=== PATIENT | female | born 1965 | race Caucasian/White ===

== ENCOUNTER 2019-08-17 12:19 | Inpatient (IN) | payer OTHER ==
--- NOTE | 2019-08-17 14:19 | R.PREADM ---
SCREENING DATE AND TIME 08/17/2019 13:01 (CDT) ANTICIPATED REHAB ADMISSION DATE 08/19/2019 REFERRING FACILITY JULIA Sawyer REFERRAL DATE AND TIME 08/17/2019 13:01 (CDT) REFERRAL ROOM# G.415 ACUTE ADMIT DATE 08/07/2019 Previous Rehabilitation(s): No. 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 Ian Kelly M.D. [id number] [id number] NAME JENNI SÁNCHEZ RUSS M/M ADDRESS [address] [place] [address] PHONE [phone] ZIP [phone] DATE OF 1965 AGE 53 SSN# [id number] GENDER female MARITAL STATUS RACE white PREF. LANGUAGE (IF NON-CROATIAN) Cambodian ADMIT FROM 02 - [facility] PRE-HOSPITAL LIVING SETTING - Home (private home/apt. board/care, assisted living, long term, transitional living) HOME TYPE AND DETAILS Type of home: single family house # of levels in the residence: 1 # of steps within the residence: 1 # of steps to enter the residence: 1 Patient lives at home with her and is independent with ADL's PRE-HOSPITAL LIVING WITH Other FAMILY SUPPORT No PRIMARY FAMILY CONTACT NAME Gil Sánchez PRIMARY FAMILY CONTACT PHONE PRIMARY FAMILY CONTACT RELATIONSHIP IS PRIMARY FAMILY CONTACT AUTH. REP.? no 1ST EMERGENCY CONTACT Gil Sánchez 1ST CONTACT PHONE 1ST CONTACT RELATIONSHIP IS 1ST CONTACT AUTH. REP.? no PHONE 2ND CONTACT ON ADM.? 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 Yes ANOTHER GREEN PARTY RESPONSIBLE? No PRIMARY REHAB/ACUTE DIAGNOSIS: 4+ Rib FX's, Fractures of L Foot (closed) ONSET DATE 08/07/2019 REHAB IMPAIRMENT CATEGORY (VIVIEN): 17 Major multiple trauma, no brain or spinal cord injury (MMT-NBSCI) does NOT meet 60% rule AFFECTED EXTREMITIES: LLE PRIMARY DIAGNOSIS-RELATED SURGERIES: Emergency ORIF of Left Foot - performed by Dr Jordana Mathews on 08/09/2019 SUMMARY OF ACUTE HOSPITALIZATION: Pt. is a 53 yo Right-handed white female. On 08/07/2019 she was admitted to [facility] and underwent emergency surgery for 4+ Rib FX's, Frac tures of L Foot (closed) (ORIF of Left Foot ) by Dr Jordana Mathews. Pre-morbidly, Pt. was independent/mod-I in Transfers Control, Locomotion, and Self-Care; and she had good Balance, Safety Awareness, Social Cognition, Sphincter Control, and Communication. Currently, she has deficits of Transfers Control, Balance, Locomotion, Safety Awareness, and Self-Car e. Pt. is now [facility] for acute in-patient rehabilitation in order to maximize patient's functional independence in activities of daily living, strength, ROM, and mobi lity. Patient has realistic goal of being discharged at assistance level 6-Jaquan to reside at Home with Spo use. PAST MEDICAL HISTORY HTN HLD HYPOTHYROID Diabetes PAST SURGICAL HISTORY: cholecystectomy HYSTERECTOMY MEDICATION ALLERGIES: No Known Drug Allergies (NKDA) ENVIRONMENTAL ALLERGIES: None Known - Substance Allergies None Known - Other Allergies None Known CODE STATUS: Full code WEIGHT/HEIGHT/BMI: WEIGHT 307 lbs HEIGHT 5' 3" BMI 54.4 DIET: - Diet Type Regular - Diet - Solid Texture Regular - Diet - Liquid Texture Regular - Tube Feed N/A REVIEW OF SYSTEMS: - Gen Alert and awake Lying in bed No apparent distress Oriented to: person, time, and place - Vital Signs Vital signs stable, afebrile - CVS RRR VITAL SIGNS Temperature: 98.4 F SBP/DBP: 119/74 Pulse: 61 Resp: 18 Vital signs stable, afebrile MEDICATIONS/TREATMENT: Other- See attached MAR (Medication Administration Record). CURRENT SPHINCTER CONTROL: Pre-hospital bladder status: continent # of bladder accidents in the last 7 days prior to screenin Pre-hospital bowel status: continent # of bowel accidents in the last 7 days prior to screenin CURRENT LOCOMOTION STATUS: distance walked 0 feet DETAILED CURRENT FUNCTIONAL STATUS: - Bladder accident frequency: Ind - No accidents in the past 7 days - Bowel accident frequency: Ind - No accidents in the past 7 days - Walking score based on distance walked: 1(<=50ft) QI SCORES: - Self-Care A. Eating 04-Supervision or touching assistance B. Oral hygiene 04-Supervision or touching assistance C. Toileting hygiene 04-Supervision or touching assistance E. Shower/bathe self 03-Partial/moderate assistance F. Upper body dressing G. Lower body dressing H. Putting on/taking off footwear - Mobility A. Roll left and right 04-Supervision or touching assistance B. Sit to lying 04-Supervision or touching assistance C. Lying to sitting on side of bed 04-Supervision or touching assistance D. Sit to stand 04-Supervision or touching assistance E. Chair/jky-hf-[id number] transfer 04-Supervision or touching assistance F. Toilet transfer 04-Supervision or touching assistance G. Car transfer 88-Not attempted due to medical condition or safety concerns I. Walk 10 feet 88-Not attempted due to medical condition or safety concerns J. Walk 50 feet with two turns 88-Not attempted due to medical condition or safety concerns K. Walk 150 feet 88-Not attempted due to medical condition or safety concerns L. Walking 10 feet on uneven surfaces 88-Not attempted due to medical condition or safety concerns M. 1 step (curb) 88-Not attempted due to medical condition or safety concerns N. 4 steps 88-Not attempted due to medical condition or safety concerns O. 12 steps 88-Not attempted due to medical condition or safety concerns P. Picking up object 88-Not attempted due to medical condition or safety concerns - Bladder and Bowel Bladder continence 0-Always continent Bowel continence 0-Always continent - Endurance Poor - Balance Poor - Safety Awareness Poor CURRENT FUNC. DEFICITS: Self-Care, Mobility, Endurance, Balance, and Safety Awareness CURRENT / PREVIOUS ASSISTIVE DEVICES: 3-in-1 Commode Quad Cane Raised Toilet Tub Bench HISTORY OF FALLS. HAS THE PATIENT HAD TWO OR MORE FALLS IN THE PAST YEAR OR ANY FALL WITH INJURY IN T HE PAST YEAR?: No PRIOR SURGERY. DID THE PATIENT HAVE MAJOR SURGERY DURING THE 100 DAYS PRIOR TO ADMISSION?: No THERAPY NOTES FROM ACUTE CARE: Attached. SPECIAL NEEDS: - Safety Concerns Skin breakdown precautions needed due to skin breakdown risk PRECAUTIONS: - Weight Bearing Precaution NWB left LE PATIENT NEEDS ACTIVE AND ONGOING THERAPEUTIC INTERVENTION OF MULTIPLE THERAPY DISCIPLINES, INCLUDING: - Dietary and Nutrition Adequate Nutrition. Nutritional Education. Nutritional Supplements. PATIENT NEEDS CLOSE MEDICAL SUPERVISION BY A REHABILITATION PHYSICIAN FOR: Coordination of Treatment Team Post-Op Complications PATIENT REQUIRES 24X7 REHAB NURSING FOR MEDICAL AND FUNCTIONAL MGT. OF THE FOLLOWING DEFICITS: Disease Management Medication Management Patient/Family Education Providing Safe Environment PATIENT REQUIRES INTENSIVE, COORDINATED INTERDISCIPLINARY APPROACH TO REHAB: Arranging Home Equipment/Services Discharge Planning Family Intervention/Training Wind Technician/Case Management PATIENT REHAB POTENTIAL: Diana SÁNCHEZ is able and expected to receive 3 hours of individualized therapy daily on at least 5 of aaliyah ry 7 days Diana SAINIs prognosis for significant practical improvement within a reasonable period of time appears Good Expected level of measurable improvement will be of a practical value to Diana SÁNCHEZ's functional capaci ty or adaptations to impairments Has a viable Discharge Plan Medically appropriate; condition is sufficiently stable to participate in intensive rehab program DISCHARGE PLAN: - Estimated Length of Stay (days) 13. - Consensus on plan Discharge plan has been discussed with primary caregiver. Patient/Family is in agreement with the nia n. Primary caregiver is in agreement with the plan. - Patient/Family Goals Return home with assistance. - Planned Living Setting Upon Discharge Home, to live with Spouse. RECOMMENDED CARE LEVEL: IRF RECOMMENDATION DETAILS: Recommended Admission to Comprehensive Rehabilitation Program to Increase Functional [place] SCREENER'S COMPLETENESS CONFIRMATION: - Screening Confirmation The patient data collection on this preadmission screening form is finished PHYSICIANS REVIEW AND ADMISSION DETERMINATION Admit - Based on my review of the Pre-Admission Screening results, in my medical judgment and experie nce, I concur with the findings and recommend admission to [facility], as this patient requires an IRF level of care. SIGNATURE PANEL: Fan Blade Truer - [electronically] signed by Basia Calvillo Aerial Installer on 08/17/2019 at 13:34 (CD T) Fan Blade Truer - [electronically] signed by Fatuma Dunn RN on 08/17/2019 at 13:47 (CDT) Physician Reviewer - [electronically] signed by Dr. Ian Kelly M.D. on 08/17/2019 at 14:18 (CDT )
--- OUTSIDE RECORDS SUMMARY | 2019-08-17 20:06 | XMS REPORT | Clinical Summary ---
:1965 Author Organization [facility] Address [address] [place] [address] Care Team Providers Name Role Phone Effie Jean MD Primary Care Provider Allergies Active Allergy Reactions Severity Noted Date Comments Metformin Rash Low 04/08/2017 Medications Medication Sig Dispensed Refills Start Date End Date Status sertraline (ZOLOFT) 100 Take 100 mg by 0 02/03/2018 Active MG tablet mouth once. Take 1 1/2 mg once daily pioglitazone (ACTOS) 15 Take 15 mg by 0 01/04/2018 Active MG tablet mouth once. gabapentin (NEURONTIN) Take 100 mg by 0 01/03/2018 Active 100 mg capsule mouth 2 (two) times a day. take 1 in the morning and 3 pills at night LORAZepam (ATIVAN) 2 MG Take 2 mg by 0 Active tablet mouth. levothyroxine 1 tablet on an 0 A ctive (SYNTHROID) 125 mcg empty stomach in tablet the morning simvastatin (ZOCOR) 20 TAKE 1 TABLET BY 0 Active MG tablet MOUTH DAILY metoprolol tartrate TAKE 1 TABLET BY 0 Active (LOPRESSOR) 50 mg MOUTH WITH FOOD tablet TWICE DAILY VICTOZA 2-CHANDLER 0.6 0 01/04/2018 A ctive mg/0.1 mL (18 mg/3 mL) pen injector meloxicam (MOBIC) 15 mg 0 01/03/2018 Active tablet traMADol (ULTRAM) 50 mg 0 01/06/2018 Active tablet Active Problems Problem Noted Date Bilateral carpal tunnel syndrome 04/08/2018 Peripheral nerve disease 04/08/2018 Encounters Date Type Specialty Care Team Description 08/03/2019 Refill Endocrinology Mary Emmanuel MD after 08/16/2018 Family History Medical History Relation Name Comments Diabetes Father Hypertension Father Depression Mother Hypertension Mother Thyroid disease Mother Relation Name Status Comments Father Mother Alive Social History Tobacco Use Types Packs/Day Years Used Date Never Smoker Smokeless Tobacco: Never Used Alcohol Use Drinks/Week oz/Week Comments No Alcohol Habits Answer Date Recorded How often do you have a drink containing alcohol? Never 04/08/2018 How many drinks containing alcohol do you have on a typical Not asked day when you are drinking? How often do you have six or more drinks on one occasion? No t asked Sex Assigned at Date Recorded Not on file Job Start Date Occupation Industry Not on file Not on file Not on file Travel History Travel Start Travel End No recent travel history available. Last Filed Vital Signs Not on file Plan of Treatment Health Maintenance Due Date Last Done Comments CERVICAL CANCER SCREENING 1986 BREAST CANCER SCREENING 12/10/2015 COLONOSCOPY SCREENING 12/10/2015 SHINGLES VACCINES (#1) 12/10/2015 INFLUENZA VACCINE 09/19/2019 Results Not on fileafter 08/16/2018 Advance Directives For more information, please contact: [phone] Type Date Recorded Patient Panel Wirer Explanati on Advance Directives, Living Will and Medical Power of Personal Injury Paralegal
--- OUTSIDE RECORDS SUMMARY | 2019-08-17 20:07 | XMS REPORT | Continuity of Care Document ---
:1965 Author Organization [employer] Care Team Providers Name Role Phone [employer] Unavailable Un available Problems Problem Status Onset Classification Date Comments Sourc e Date Reported Encounter for 09/07/2018 [facility] Victory screening 019 Women's mammogram for malignant neoplasm of breast Z12.31 - ENCNTR Active Tad riaarmen Mannie SCREEN MAMMOGRAM 018 FOR MA Claudication Active Diagnosis 04/10/2017 [facility] Cardiovasc ular Chest pain in Active Diagnosis 04/10/2017 [facility] adult Cardiovasc ular Venous Active Problem 04/10/2017 [facility] insufficiency Cardio vascular Other symptoms Active Diagnosis 04/10/2017 [facility] involving Cardiovasc ular cardiovascular system SOB (shortness of Active Diagnosis 04/10/2017 [facility] L breath) Cardiovasc ular Palpitations Active Diagnosis 04/10/2017 [facility] Cardiovasc ular Lower extremity Active Diagnosis 04/10/2017 [facility] edema Cardiovasc ular Medications Medication Details Route Status Patient Ordering Order Source Instructions Provider Date Nitroglycerin PRN CHEST Sublingual Active 0.4 MG Josi CL PAINS Q 5 Sublingual 2017 Cardiovascu lar MIN, MAX 3 THEN CALL 911 Metoprolol 1 tablet Orally Active 50 MG Orally Josi CL Tartrate with food Twice a day Cardiovas cular Simvastatin 1 tablet Orally Active 20 MG Orally Josi CL in the Once a day Cardiovascula r evening Levothyroxine 1 tablet Orally Active 125 MCG Josi CL Sodium on an Orally Once a Cardiovasc ular empty day stomach in the morning Glimepiride 1 tablet Orally Active 2 MG Orally Josi CL with bid Cardiovascular breakfast or the first main meal of the day Duloxetine HCl 1 capsule Orally Active 30 MG Orally Josi CL Twice a day Cardiovascul ar Lorazepam 1 tablet Orally Active 2 MG Orally Josi CL at bedtime Once a day Cardiovasc ular as needed Glimepiride 1 tablet Orally Active 2 MG Orally Josi CL with bid Cardiovascular breakfast or the first main meal of the day Sertraline HCl not NA Active Josi CL defined Cardiovascular Invokana not NA Active Josi CL defined Cardiovascular Allergies, Adverse Reactions, Alerts Substance Category Reaction Severity Reaction Status Date Comments S ource type Reported metformin Adverse Info Not Adverse Active CL Reaction Available Reaction 8 Card iovascula r Immunizations No Data Provided for This Section Results No Data Provided for This Section Pathology Reports No Data Provided for This Section Diagnostic Reports Report Value Date Source Breast Mammo Scrn 02/17/2018 [facility] nn JENNA incl CAD MA BILATERAL DIGITAL SCREENING MAMMOGRAM WITH CAD: 02/17/2018 CLINICAL: /Screening. Current study was evaluated with a Vegetable Preparer d Detection (CAD) system. COMPARISON:Comparison is mad e to exams dated: 04/24/2014 mammogram, 02/25/2010 mammogram, 09/24/2008 mammogram, and 02/15/2006 mammogram - [facility]. TECHNIQUE: Mammographic view s were obtained using digital acquisition. Current study was also evaluated with a Computer Aided Detection (CAD) system. FINDINGS: There are scattered fibroglandular densities in both breasts. No significant masses, calci fications, or other findings are seen in either breast. There has been no significant interval change. IMPRESSION: BENIGN RECOMMENDATION: There is no mammographic vale dence of malignancy. A 1 year screening mammogram is recommended.(02/18/2019) This exam was interpreted at [id number] for [facility]. Kim Paredes M.D. dh/:02/20/2018 09:23:28 Integration Project Manager(s): Yoel Badillo, [facility] letter sent: BI-RADS 1/2 Mammogram BI-RADS: 2 Benign Consultation Notes No Data Provided for This Section Discharge Summaries No Data Provided for This Section History and Physicals No Data Provided for This Section Vital Signs Vital Sign Value Date Comments Source Weight 270 04/08/2017 [facility] Cardiovascul ar Heart Rate 60 04/08/2017 [facility] Cardiovascul ar Diastolic (mm Hg) 100 04/08/2017 [facility] Cardiov ascular Systolic (mm Hg) 142 04/08/2017 [facility] Cardiova scular Weight 279 03/26/2017 CL Cardiovascul ar Heart Rate 73 03/26/2017 CL Cardiovascul ar Diastolic (mm Hg) 82 03/26/2017 CL Cardiov ascular Systolic (mm Hg) 140 03/26/2017 CL Cardiova scular Encounters Location Location Encounter Encounter Reason Attending ADM DC Stat us Source Details Type Number For Provider Date Date Visit [facility] Outpt Diag [id number] 02/17 [facility] Outpatient Services [facility] [place] [facility] No Data Provided for This Section Assessment and Plan No Data Provided for This Section Plan of Care No Data Provided for This Section Social History Social History Date Source No data available for this 02/18/2018 [facility] section Family History No Data Provided for This Section Advance Directives No Data Provided for This Section Functional Status No Data Provided for This Section
--- OUTSIDE RECORDS SUMMARY | 2019-08-17 20:08 | XMS REPORT | Continuity of Care Document ---
:1965 Author Organization [facility] t Address [address] [place] [address] Care Team Providers Name Role Phone Effie Jean MD Primary Care Physician Cholo MUNOZ Attending Clinician Effie Jean Attending Clinician Payers Payer Name Policy Type Policy Number Effective Date Expiration Date S adal CIGNACIGNA OPEN xxxxxxxxxxx 2003 [place] ACCESS/NETWORKxx 00:00:00 Methodis t / 4-PresentHMO Problems Condition Condition Condition Status Onset Resolution Last Treating Co mments Source Name Details Category Date Date Treatment Clinician Date Binge Binge Problem Active 2019- [place] eating Eating 4-16 Family disorder Disorder 00:00: Practi c 00 e Endometrio Endometrio Problem Active 2020-0 V ill[facility] sis sis 4-16 Family (clinical) (Clinical) 00:00: Pr actic 00 e 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 00:00: st syndrome syndrome 00 Peripheral Peripheral Disease Active 2019-0 [place] nerve nerve 2-19 Methodi disease disease 00:00: st 00 Z12.31 - Diagnosis Active 2017-022018-02-17 M emoria ENCNTR 04-16 11:45:00 l SCREEN Z12.31 - 00:01: Tashi clements MAMMOGRAM ENCNTR 00 FOR MA SCREEN MAMMOGRAM FOR MA Active 02/[facility] Hyp[facility] Hypothyroi Problem Active V illage dism dism Family Practic e Mixed Mixed Problem Active [facility] hyperlipid Hyperlipid arron emia emia Practic e Recurrent Recurrent Problem Active Lucía maikol major Major Family depression Depression Pr actic e Generalize Generalize Problem Active [facility] illage d anxiety d Anxiety Fami ly disorder Disorder Practi c e Essential Essential Problem Active Lucía maikol hypertensi Hypertensi Fa arron on on Practic e Rosacea Rosacea Problem Active [facility] Fibromyalg Fibromyalg Problem Active [facility] ia ia Family Practic e Hyperglyce Hyperglyce Problem Active V illage janee due to janee Due to [facility] type 2 Type 2 Practic diabetes Diabetes e mellitus Mellitus Claudicati Diagnosis Active 2017-04-10 Memoria on 03:46:57 l Mannie Claudicati on Active Diagnosis 04/10/2017 CL Cardiovasc ular Chest pain Diagnosis Active 2017-04-10 Memoria in adult 03:46:57 l Chest Mannie pain in adult Active Diagnosis 04/10/2017 CL Cardiovasc ular Venous Problem Active 2017-04-10 Memor ia insufficie 03:46:57 l ncy Venous Mannie insufficie ncy Active Problem 04/10/2017 CL Cardiovasc ular Other Diagnosis Active 2017-04-10 Mem oria symptoms 03:46:57 l involving Other Tashi n cardiovasc symptoms ular involving system cardiovasc ular system Active Diagnosis 04/10/2017 CL Cardiovasc ular SOB Diagnosis Active 2017-04-10 Mem oria (shortness 03:46:57 l of breath) SOB Tashi n (shortness of breath) Active Diagnosis 04/10/2017 CL Cardiovasc ular Palpitatio Diagnosis Active 2017-04-10 Memoria ns 03:46:57 l [place] Palpitatio ns Active Diagnosis 04/10/2017 CL Cardiovasc ular Lower Diagnosis Active 2017-04-10 Mem oria extremity 03:46:57 l edema Lower Mannie extremity edema Active Diagnosis 04/10/2017 CL Cardiovasc ular Encounter Problem 2019-0 2018-09-07 2018-09-07 Memoria for 02-23 11:43:41 11:43:41 l screening 04:09: Mannie mammogram Encounter 35 for for malignant screening neoplasm mammogram of breast for malignant neoplasm of breast 02/23/2018 09/07/2018 [facility] Krissy Women's Allergies, Adverse Reactions, Alerts Allergy Allergy Status Severity Reaction(s) Onset Inactive Treating Comm ents Source Name Type Date Date Clinician No Known DA Active [facility] Allergie 08-06 Clear s 00:00: Enriquez 00 [facility] Metformi Propensi Active Rash [place] ty to 04-08 Methodi adverse 00:00: st reaction 00 s to drug metformi metformi Active Info Not Tad owen n n Available 04-08 l 00:00: Mannie 00 No Known DA Active U [facility] Allergie 06-30 Clear s 00:00: Enriquez 00 [facility] Family History Family Member Diagnosis Comments Start Date Stop Date Source Natural father Diabetes [place] [facility]od[facility] Natural father Hypertension [place] Muslim Natural mother Depression [facility] thodist Natural mother Hypertension [place] Muslim Natural mother Thyroid disease [place] Muslim Social History Social Habit Start Date Stop Date Quantity Comments Source History [facility] Meth odist Alcohol Std Drinks History [facility] Meth odist Alcohol Binge Sex Assigned At [facility] ethodist Alcohol intake 2018-04-08 2018-04-08 Current [facility] thodist 00:00:00 00:00:00 non-drinker of alcohol (finding) History [facility] 2018-04-08 2018-04-08 1 [place] Meth odist Alcohol Frequency 00:00:00 00:00:00 Social History 2018-02-18 2018-02-18 [facility] 05:59:00 05:59:00 Smoking Status Start Date Stop Date Source Never smoker [place] Methodis t Medications Ordered Filled Start Stop Current Ordering Indication Dosage Frequency Signature Comments Components Source Medication Medication Date Date Medication? Clinician (SIG) Name Name levothyroxi Yes 1 tablet [place] ne 2-19 on an Methodi (SYNTHROID) 08:18: empty st 125 mcg 53 stomach in tablet the morning simvastatin Yes TAKE 1 [place] (ZOCOR) 20 2-19 TABLET BY Meth emelina MG tablet 08:18: MOUTH st 53 DAILY metoprolol Yes TAKE 1 [place] tartrate 2-19 TABLET BY Method i (LOPRESSOR) 08:18: MOUTH WITH st 50 mg 53 FOOD TWICE tablet DAILY LORAZepam 2019-0 Yes 2mg Take 2 mg Lex ston (ATIVAN) 2 2-19 by mouth. Meth emelina MG tablet 08:18: st 52 sertraline 2017- Yes 100mg Take 100 [place] (ZOLOFT) 2-17 mg by Methodi 100 MG 00:00: mouth st tablet 00 once. Take 1 1/2 mg once daily traMADol 2017-02 Yes [place] (ULTRAM) 50 1-19 Methodi mg tablet 00:00: st 00 pioglitazon 2017-02 Yes 15mg Take 15 mg [place] e (ACTOS) 1-17 by mouth Method i 15 MG 00:00: once. st tablet 00 VICTOZA 2017-02 Yes [place] 2-CHANDLER 0.6 1-17 Methodi mg/0.1 mL 00:00: st (18 mg/3 00 mL) pen injector gabapentin 2017-02 Yes 100mg Q.5D Take 100 [place] (NEURONTIN) 1-16 mg by Methodi 100 mg 00:00: mouth 2 st capsule 00 (two) times a day. take 1 in the morning and 3 pills at night meloxicam 2017-02 Yes [place] (MOBIC) 15 1-16 Methodi mg tablet 00:00: st 00 Metoprolol 2017-0 Yes Mohamed 1 tablet Memoria Tartrate 2-21 Josi with food l 03:46: [place] 57 Simvastatin 2017-0 Yes Mohamed 1 tablet Memoria 2-21 Josi in the l 03:46: evening Mannie 57 Levothyroxi 2017-0 Yes Mohamed 1 tablet Memoria ne Sodium 2-21 Josi on an l 03:46: empty Mannie 57 stomach in the morning Glimepiride 2017-0 Yes Mohamed 1 tablet Memoria 2-21 Josi with l 03:46: breakfast Mannie 57 or the first main meal of the day Duloxetine 2017- Yes Mohamed 1 capsule Memoria HCl 2-21 Josi l 03:46: Mannie 57 Lorazepam 2017-0 Yes Mohamed 1 tablet M emoria 2-21 Josi at bedtime l 03:46: as needed Mannie 57 Sertraline 2017-0 Yes Mohamed not Tad owen HCl 2-21 Josi defined l 03:46: Mannie 57 Invokana 0 Yes Mohamed not Memori a 2-21 Josi defined l 03:46: [place] 57 Glimepiride Yes Mohamed 1 tablet Memoria 03-28laby with l 03:45: breakfast Mannie 37 or the first main meal of the day Nitroglycer Yes Mohamed PRN CHEST Memoria in 03-26 [facility] PAINS Q 5 l 00:00: MIN, MAX 3 [place] 00 THEN CALL 911 Terrie Terrie No Terrie Villag e Allergy 1 Allergy 1 Allergy 1 Family capsule capsule capsule Practi c orally a orally a orally a e day in the day in the day in the AM AM AM bupropion bupropion No 1 BID bupropion [facility] HCl SR 100 HCl SR 100 HCl SR 100 Family mg mg mg Practic tablet,12 tablet,12 tablet,12 e hr hr hr sustained-r sustained-r sustained- elease Take elease Take release 1 tablet 1 tablet Take 1 twice a day twice a day tablet by oral by oral twice a route for route for day by 30 days. 30 days. oral route for 30 days. gabapentin gabapentin No 1capsul TID gabapentin [facility] 100 mg 100 mg e(s) 100 mg Family capsule capsule capsule Practi c Take 1 Take 1 Take 1 e capsule 3 capsule 3 capsule 3 times a day times a day times a by oral by oral day by route for route for oral route 90 days. 90 days. for 90 days. levothyroxi levothyroxi No levothyrox [facility] ne 125 mcg ne 125 mcg ine 125 Family tablet TAKE tablet TAKE mcg tablet Practic 1 TABLET BY 1 TABLET BY TAKE 1 e MOUTH ONE MOUTH ONE TABLET BY TIME DAILY TIME DAILY MOUTH ONE IN THE IN THE TIME DAILY MORNING ON MORNING ON IN THE AN EMPTY AN EMPTY MORNING ON STOMACH STOMACH AN EMPTY STOMACH lorazepam 2 lorazepam 2 No lorazepam [place] mg tablet mg tablet 2 mg Famil y Take 1 Take 1 tablet Practic tablet tablet Take 1 e every day every day tablet by oral by oral every day route. route. by oral route. metoprolol metoprolol No 1 BID metoprolol [facility] tartrate 50 tartrate 50 tartrate Family mg tablet mg tablet 50 mg Prac tic Take 1 Take 1 tablet e tablet tablet Take 1 twice a day twice a day tablet by oral by oral twice a route for route for day by 90 days. 90 days. oral route for 90 days. pioglitazon pioglitazon No 1 Q1D pioglitazo [place] e 15 mg e 15 mg ne 15 mg Famil y tablet Take tablet Take tablet Practic 1 tablet 1 tablet Take 1 e every day every day tablet by oral by oral every day route for route for by oral 90 days. 90 days. route for 90 days. sertraline sertraline No sertraline [facility] 100 mg 100 mg 100 mg Family tablet TAKE tablet TAKE tablet Practic 2 TABLETS 2 TABLETS TAKE 2 e BY MOUTH BY MOUTH TABLETS BY EVERY DAY EVERY DAY MOUTH EVERY DAY simvastatin simvastatin No simvastati [facility] 20 mg 20 mg n 20 mg Family tablet TAKE tablet TAKE tablet Practic 1 TABLET BY 1 TABLET BY TAKE 1 e MOUTH DAILY MOUTH DAILY TABLET BY MOUTH DAILY Victoza Victoza No Victoza Villag e 3-Chandler 0.6 3-Chandler 0.6 3-Chandler 0.6 Family mg/0.1 mL mg/0.1 mL mg/0.1 mL Practic (18 mg/3 (18 mg/3 (18 mg/3 e mL) mL) mL) subcutaneou subcutaneou subcutaneo s pen s pen us pen injector injector injector Xyzal 5 mg Xyzal 5 mg No 1 Q1D Xyzal 5 mg [place] tablet Take tablet Take tablet Family 1 tablet 1 tablet Take 1 Pract ic every day every day tablet e by oral by oral every day route at route at by oral bedtime. bedtime. route at bedtime. Immunizations Ordered Immunization Filled Immunization Date Status Commen ts Source Name Name influenza, influenza, 2018-11-18 Completed [facility] Family injectable, injectable, 00:00:00 Practice quadrivalent quadrivalent Vital Signs Vital Name Observation Time Observation Value Comments Source Weight 2017-04-08 21:45:00 [facility] [place] Heart Rate 2017-04-08 21:45:00 [facility] [place] Diastolic (mm Hg) 2017-04-08 21:45:00 [facility] orial Mannie Systolic (mm Hg) 2017-04-08 21:45:00 Tad Chand Weight 2017-03-26 15:00:00 [facility] [place] Heart Rate 2017-03-26 15:00:00 [facility] [place] Diastolic (mm Hg) 2017-03-26 15:00:00 [facility] orial Mannie Systolic (mm Hg) 2017-03-26 15:00:00 Tad Chand Procedures Procedure Date / Time Performing Clinician Source Performed Laparoscopic [facility] Cholecystectomy Practice Knee Surgery [facility] Practice Appendectomy [facility] Hysterectomy (Total) [facility] Plan of Care Planned Activity Planned Date Details Comments Source Future Scheduled 2019-09-19 INFLUENZA VACCINE [place] [facility] Test 00:00:00 [code = INFLUENZA VACCINE] Diagnostic Test 2019-06-04 CMP, serum or plasma Vill age Family Pending 00:00:00 [code = CMP, serum or Practi ce plasma] Diagnostic Test 2019-06-04 lipid panel, serum Villag e Family Pending 00:00:00 [code = lipid panel, Practic e serum] Diagnostic Test 2019-06-04 CK (creatine kinase), Lucía maikol Family Pending 00:00:00 total, serum [code = Practic e CK (creatine kinase), total, serum] Diagnostic Test 2019-06-04 HbA1c (hemoglobin [facility] Pending 00:00:00 A1c), blood [code = Practice HbA1c (hemoglobin A1c), blood] Diagnostic Test 2019-06-04 microalbumin/creatini Lucía [facility] Family Pending 00:00:00 ne, mass ratio, urine Practi ce [code = microalbumin/creatini ne, mass ratio, urine] Diagnostic Test 2019-06-04 TSH, serum or plasma Vill age Family Pending 00:00:00 [code = TSH, serum or Practi ce plasma] Diagnostic Test 2019-06-04 T4, free, serum [code Lucía maikol Family Pending 00:00:00 = T4, free, serum] Practice Future Scheduled 2015-12-10 BREAST CANCER [facility] thodist Test 00:00:00 SCREENING [code = BREAST CANCER SCREENING] Future Scheduled 2015-12-10 COLONOSCOPY SCREENING [place] Test 00:00:00 [code = COLONOSCOPY SCREENING] Future Scheduled 2015-12-10 SHINGLES VACCINES [place] Test 00:00:00 (#1) [code = SHINGLES VACCINES (#1)] Future Scheduled 1986 Screening for [facility] thodist Test 00:00:00 malignant neoplasm of cervix (procedure) [code = 646670714] Encounters Start End Encounter Admission Attending Care Care Encounter Source Date/Time Date/Time Type Type Clinicians Facility Department ID 2019-06-04 2019-06-04 Lucy V[place]ALPANDO [place] - [id number] V illage 00:00:00 00:00:00 Effie Jean MD: Medical - Prac tic [address] [place] [address] , Ph. 2018-02-17 2018-02-17 Outpatient Ted, [id number] 11:35:00 23:59:00 Lucy [id number] Effie [id number] 2017-04-08 2017-04-08 Outpatient Ralf Monroe [id number] [facility]inic 15:45:00 15:45:00 Josi kimball Md Pa Pa 2017-04-03 2017-04-03 Outpatient Ralf Monroe 171 [id number] eClinic 14:30:00 14:30:00 Josi kimball Md Pa Pa 2017-04-03 2017-04-03 Outpatient Ralf Monroe 171 [id number] eClinic 14:00:00 14:00:00 Josi kimball Md Pa Pa 2017-04-03 2017-04-03 Outpatient Ralf Monroe 171 [id number] eClinic 13:30:00 13:30:00 Josi kimball Md Pa Pa 2017-04-03 2017-04-03 Outpatient Ralf Monroe 171 [id number] eClinic 12:30:00 12:30:00 Josi kimball Md Pa Pa 2017-04-03 2017-04-03 Outpatient Ralf Monroe 171 [id number] eClinic 11:30:00 11:30:00 Josi kimball Md Pa Pa 2017-04-01 2017-04-01 Outpatient Ralf Monroe 171 [id number] eClinic 16:00:00 16:00:00 Josi kimball Md Pa Pa 2017-03-26 2017-03-26 Outpatient Ralf Monroe [id number] eClinic 09:00:00 09:00:00 Josi kimball Md Pa Pa 2017-03-26 2017-03-26 Outpatient Mohamed L Mohkyle L 170 [id number] eClinic 09:00:00 09:00:00 Josi kimball Md Pa Pa Results Test Description Test Time Test Comments Results Result Comments Source GLUBED 2019-08-17 18:35:00 Test Item Value Reference Range Interpretation Comme nts GLUBED (test code = GLUBED) 118 MG/DL 70-110 H Performed by certified 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 [facility] [id number] 12:06:00 Test Item Value Reference Range Interpretation Comments GLUBED (test code = 107 MG/DL 70-110 N Performe d by certified GLUBED) 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 [facility] [id number] 07:46:00 Test Item Value Reference Range Interpretation Comments GLUBED (test code = 117 MG/DL 70-110 H Performe d by certified GLUBED) 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 [facility] [id number] 16:25:00 Test Item Value Reference Range Interpretation Comments GLUBED (test code = 95 MG/DL 70-110 N Performe d by certified GLUBED) 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 [facility] [id number] 12:12:00 Test Item Value Reference Range Interpretation Comments GLUBED (test code = 123 MG/DL 70-110 H Performe d by certified GLUBED) 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 [facility] [id number] 08:29:00 Test Item Value Reference Range Interpretation Comments GLUBED (test code = 96 MG/DL 70-110 N Performe d by certified GLUBED) 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 [facility] [id number] 20:51:00 Test Item Value Reference Range Interpretation Comments GLUBED (test code = 96 MG/DL 70-110 N Performe d by certified GLUBED) 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 [facility] [id number] 11:51:00 Test Item Value Reference Range Interpretation Comments GLUBED (test code = 83 MG/DL 70-110 N Performe d by certified GLUBED) 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 [facility] [id number] 08:12:00 Test Item Value Reference Range Interpretation Comments GLUBED (test code = 86 MG/DL 70-110 N Performe d by certified GLUBED) 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 [facility] [id number] 21:20:00 Test Item Value Reference Range Interpretation Comments GLUBED (test code = 161 MG/DL 70-110 H Performe d by certified GLUBED) 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 [facility] [id number] 15:33:00 Test Item Value Reference Range Interpretation Comments GLUBED (test code = 110 MG/DL 70-110 N Performe d by certified GLUBED) 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 [facility] [id number] 11:25:00 Test Item Value Reference Range Interpretation Comments GLUBED (test code = 136 MG/DL 70-110 H Performe d by certified GLUBED) 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 [facility] [id number] 08:28:00 Test Item Value Reference Range Interpretation Comments GLUBED (test code = 118 MG/DL 70-110 H Performe d by certified GLUBED) 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 [facility] [id number] 21:08:00 Test Item Value Reference Range Interpretation Comments GLUBED (test code = 128 MG/DL 70-110 H Performe d by certified GLUBED) 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 [facility] [id number] 16:52:00 Test Item Value Reference Range Interpretation Comments GLUBED (test code = 125 MG/DL 70-110 H Performe d by certified GLUBED) 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 [facility] [id number] 12:50:00 Test Item Value Reference Range Interpretation Comments GLUBED (test code = 119 MG/DL 70-110 H Performe d by certified GLUBED) 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 [facility] [id number] 09:07:00 Test Item Value Reference Range Interpretation Comments GLUBED (test code = 126 MG/DL 70-110 H Performe d by certified GLUBED) 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 [facility] [id number] 21:44:00 Test Item Value Reference Range Interpretation Comments GLUBED (test code = 175 MG/DL 70-110 H Performe d by certified GLUBED) 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 [facility] [id number] 17:08:00 Test Item Value Reference Range Interpretation Comments GLUBED (test code = 113 MG/DL 70-110 H Performe d by certified GLUBED) 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 [facility] [id number] 14:12:00 Test Item Value Reference Range Interpretation Comments GLUBED (test code = 81 MG/DL 70-110 N Performe d by certified GLUBED) 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 [facility] - DUP VEIN [id number] 10:56:00 Name: JENNI QUINONES [facility] : 1965 Age/S: 53 / F [address] [place] [address] Unit #: [id number] Loc: [facility] [id number] Phys: Glen Dowling MD Acct: [id number] Dis Date: Status: ADM IN PHONE #: [phone] Exam Date: 08/12/2019 1043 FAX #: [phone] Reason: RIGHT LOWER LEG PAIN, BELOW THE PAIN; R/O DVT EXAMS: CPTCODE: [id number] [place] VEIN UNI/LTD 56032 Clinical Indication: Pain; Comparison: Right lower extremity Doppler venous ultrasound from 02/16/2011. TECHNIQUE: Sonographic evaluation of the bilateral lower extremity veins was performed using high resolution B-mode imaging, along with pulse and color Doppler imaging. FINDINGS: Right lower extremity: The common femoral vein, femoral vein, popliteal vein and visualized posterior tibial/calf veins are patent. There is no echogenic debris to suggest deep venous thrombosis. The saphenofemoral junction is unremarkable. IMPRESSION: No sonographic evidence of DVT in the right lower extremity. SL: [id number] at 1056 Reported and signed by: Jareth Emmanuel D.O. CC: Glen Dowling MD; Jordana Chambers MD Technologist: Lamar Barton RDMS(OB)(AB) Trnscb Date/Time: 08/12/2019 (1056) [email or web address] Orig Print D/T: S: 08/12/2019 (1100) Probe: PAGE 1 Signed Report- XR TIBIA/FIBULA 2 V [id number] 10:13:00 FAX: Glen Tian MD [phone] [place]: St: ADM FAX: Jordana Chambers MD [phone] Name: JENNI QUINONES [facility] [place] : 1965 Age/S: 53/F [address] [place] [address] Unit #: [id number] Loc: [address] [address] Phys: Glen Dowling MD Acct: [id number] Dis Date: Status: ADM IN PHONE #: [phone] Exam Date: 08/12/2019901 FAX #: [phone] Reason: RIGHT LOWER LEG PAIN, BELOW THE KNEE EXAMS: CPT CODE: [id number] XR TIBIA/FIBULA 2 [place] [id number] Right leg 2 views 08/12/2019 HISTORY: Right lower leg pain. FINDINGS: There is no fracture involving the right tibia or fibula. No aggressive lesion is present. There is mild subcutaneous soft tissue swelling. Plantar calcaneal spur is noted. IMPRESSION: No abnormality involving right tibia or fibula identified. SL: [id number] at 1013 Reported and signed by: Keny Mata M.D. CC: Glen Dowling MD; Jordana Chambers MD Technologist: Yenni Terrazas RT(R) Trnscrd Date/Time/By: 08/12/2019 (1013) : By: [email or web address] Orig Print D/T: S: 08/12/2019 (1016) PAGE 1 Signed [id number] 08:39:00 Test Item Value Reference Range Interpretation Comments GLUBED (test code = 83 MG/DL 70-110 N Performe d by certified GLUBED) 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 [facility] [id number] 21:00:00 Test Item Value Reference Range Interpretation Comments GLUBED (test code = 116 MG/DL 70-110 H Performe d by certified GLUBED) 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 [facility] [id number] 18:27:00 Test Item Value Reference Range Interpretation Comments GLUBED (test code = 105 MG/DL 70-110 N Performe d by certified GLUBED) 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 [facility] [id number] 13:57:00 Test Item Value Reference Range Interpretation Comments GLUBED (test code = 84 MG/DL 70-110 N Performe d by certified GLUBED) 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 [facility] [id number] 08:33:00 Test Item Value Reference Range Interpretation Comments GLUBED (test code = 85 MG/DL 70-110 N Performe d by certified GLUBED) 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 [facility] [id number] 07:46:00 Test Item Value Reference Range Interpretation Comments GLUBED (test code = 136 MG/DL 70-110 H Performe d by certified GLUBED) 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 [facility] [id number] 23:17:00 Test Item Value Reference Range Interpretation Comments GLUBED (test code = 151 MG/DL 70-110 H Performe d by certified GLUBED) 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 [facility] [id number] 23:17:00 Test Item Value Reference Range Interpretation Comments GLUBED (test code = 64 MG/DL 70-110 L Performe d by certified GLUBED) 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 [facility] [id number] 12:23:00 Test Item Value Reference Range Interpretation Comments GLUBED (test code = 108 MG/DL 70-110 N Performe d by certified GLUBED) 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 [facility] [id number] 09:51:00 Test Item Value Reference Range Interpretation Comments GLUBED (test code = 62 MG/DL 70-110 L Performe d by certified GLUBED) 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 [facility] BASIC METABOLIC [id number] 07:58:00 Test Item Value Reference Range Interpretation Comments SODIUM (test code = NA) 136 mEq/L 134-147 N POTASSIUM (test code = 4.3 mEq/L 3.4-5.0 N K) CHLORIDE (test code = 106 mEq/L 100-108 N CL) CARBON DIOXIDE (test 25 mEq/L 21-33 N code = CO2) ANION GAP (test code = 9 0-20 N GAP) GLUCOSE (test code = 99 mg/dL 70-110 N GLU) BLOOD UREA NITROGEN 11 mg/dL 7-18 N (test code = BUN) GLOMERULAR FILTRATION 65.5 90-95 L Units of measure = RATE (test code = GFR) ml/mi n/1.73 m2 CREATININE (test code = 0.9 mg/dL 0.6-1.3 CREAT) CALCIUM (test code = 8.3 mg/dL 8.0-10.5 N CA) CBC W/AUTO [id number] 07:57:00 Test Item Value Reference Range Interpretation Comments WHITE BLOOD CELL (test code = 7.42 x10 3/uL 4.5-11.0 N WBC) RED BLOOD CELL (test code = 3.68 x10 6/uL 3.54-5.02 N RBC) HEMOGLOBIN (test code = HGB) 10.7 g/dL 11.0-15.0 L HEMATOCRIT (test code = HCT) 32.9 % 33.0-45.0 L MEAN CELL VOLUME (test code = 89.4 fL 81.0-99.0 N MCV) MEAN CELL HGB (test code = MCH) 29.1 pg 27.0-33.0 N MEAN CELL HGB CONCETRATION 32.5 g/dL 33.0-37.0 L (test code = MCHC) RED CELL DISTRIBUTION WIDTH CV 13.0 % 11.5-14.5 N (test code = RDW) RED CELL DISTRIBUTION WIDTH SD 42.4 fL 37.0-54.0 N (test code = RDW-SD) PLATELET COUNT (test code = 187 x10 3/uL 150-400 N PLT) MEAN PLATELET VOLUME (test code 11.7 fL 7.0-9.0 H = MPV) NEUTROPHIL % (test code = NT%) 74.6 % 56.0-77.0 N IMMATURE GRANULOCYTE % (test 0.5 % 0.0-2.0 N code = IG%) LYMPHOCYTE % (test code = LY%) 17.0 % 14.0-32.0 N MONOCYTE % (test code = MO%) 7.5 % 4.8-9.0 N EOSINOPHIL % (test code = EO%) 0.1 % 0.3-3.7 L BASOPHIL % (test code = BA%) 0.3 % 0.0-2.0 N NUCLEATED RBC % (test code = 0.0 % 0-0 N NRBC%) NEUTROPHIL # (test code = NT#) 5.53 x10 3/uL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
--- OUTSIDE RECORDS SUMMARY | 2019-08-17 20:09 | XMS REPORT | Encounter Summary ---
:1965 Author Care Team Providers Name Role Phone Dr. Lucy Jean Primary Care Provider [phone] Michelle Espana MD Movie Theater Manager [phone] Reason for Visit Mixed hyperlipidemia; annual depression screening; Telemedicine Visit; medication refill Instructions 1. Mixed hyperlipidemia simvastatin 20 mg tablet CMP, serum or plasma lipid panel, serum CK (creatine kinase), tota l, serum 2. Type 2 diabetes mellitus HbA1c (hemoglobin A1c), bl ood microalbumin/creatinine, m ass ratio, urine 3. Hypothyroidism TSH, serum or plasma T4, free, serum 4. Bilateral carpal tunnel syndr ome 5. Depression screening learning about depression Discussion Note: None recorded. Plan of Care Reminders Provider Appointments None recorded. Lab CMP, Serum [facility] - or Plasma 06/04/2019 Laboratory Lipid [facility] - Panel, Serum 06/04/2019 Laboratory CK [facility] - (Creatine Kinase), 06/04/2019 Laboratory Total, Serum HbA1C [facility] - (Hemoglobin a1C), 06/04/2019 Laboratory Blood [facility] - Microalbumin/creatin 06/04/2019 Laboratory ine, Mass Ratio, Urine TSH, Serum [facility] - or Plasma 06/04/2019 Laboratory T4, Free, [facility] - Serum 06/04/2019 Laboratory Referral None recorded. Procedures None recorded. Surgeries None recorded. Imaging None recorded. Medications Name Start Date Terrie Allergy 1 capsule orally a day in the AM bupropion HCl SR 100 mg tablet,12 hr sustained-release Take 1 tablet twice a day by oral route for 30 days. gabapentin 100 mg capsule Take 1 capsule 3 times a day by oral route for 90 day s. levothyroxine 125 mcg tablet TAKE 1 TABLET BY MOUTH ONE TIME DAILY IN THE MORNING ON AN EMPTY STOMACH lorazepam 2 mg tablet Take 1 tablet every day by oral route. metoprolol tartrate 50 mg tablet Take 1 tablet twice a day by oral route for 90 days. pioglitazone 15 mg tablet Take 1 tablet every day by oral route for 90 days. sertraline 100 mg tablet TAKE 2 TABLETS BY MOUTH EVERY DAY simvastatin 20 mg tablet TAKE 1 TABLET BY MOUTH DAILY Victoza 3-Clayton 0.6 mg/0.1 mL (18 mg/3 mL) subcutaneous pen injector Xyzal 5 mg tablet Take 1 tablet every day by oral route at bedtime. Medications Administered None recorded. Vitals None recorded. Results Lab Results None recorded. Allergies None recorded. Problems Name Status Onset Date Source Binge Eating Disorder Active 06/04/2019 Endometriosis (Clinical) Active 06/04/2019 Hypothyroidism Active Mixed Hyperlipidemia Active Recurrent Major Depression Active Generalized Anxiety Disorder Active Essential Hypertension Active Rosacea Active Fibromyalgia Active Hyperglycemia Due to Type 2 Diabetes Mellitus Active Procedures Date Name Performed by Laparoscopic Cholecystectomy Information not available Knee Surgery Information not avai lable Appendectomy Information not avai lable Hysterectomy (Total) Information not liang ilable Vaccine List Vaccine Type influenza, injectable, quadrivalent 11/18/2018 Social History Tobacco Smoking Status Never Smoker Past Encounters 06/04/2019 Mixed Hyperlipidemia; Type 2 Diabetes Me llitus; Hypothyroidism; Bilateral Carpal Tunnel Syndrome; Depression Screening Lucy Jean MD: [address] [facility] [address] [address], Ph. History of Present Illness Diabetes Reported By: Patient HPI: Review finger sticks: monito ring glucose daily, fastin's. Control: usually well controlled, parag ated with diet and oral medications, hemoglobin A1C has been less than 7, hemoglobin A1C goal is less than 7. Compliance: compliant with m edications, compliant with home glucose monitoring, noncompliant wit h followup-visits. Self Care: seeing eye doctor regularly, checking f eet regularly Hyperlipidemia Reported By: Patient HPI: Type of hyperlipidemia: comb ined. Prior Tests: highest cholesterol level: 223 date: 223, highes t LDL level: 147 date: 147, highest triglyceride level: 149 date : 149, lowest HDL level: 46 date: [id number]. Current Therapy: currently t aking:simvastatin, last cholesterol level: 185 date: 185, last LDL leve l: 107 date: 107, last triglyceride level: 1202 date: 1202, last HDL le rosalina: 55 date: 55; 04/2018 Note: I confirm that I received verbal consent from the patient for the virtual visit. Review of Systems Comprehensive General Adult ROS Reported By: Patient Constitutional: Constitutional: no fever Cardiovascular: Cardiovascular: no chest ann n, no shortness of breath when walking, no palpitations Respiratory: Respiratory: no cough, no wh eezing, no shortness of breath Musculoskeletal: Musculoskeletal: swelling in the extremities; feet by the end of the week and she takes prn HCTZ & Kcl Neurologic: Neurologic: ; has tingling i n her feet occ, and in her hands every night when she lays down, sh shira is wearing braces on her wrists at night and that helps a lot Physical Exam General Adult Exam (Female), Telemedicine/Virtual Visit Reported By: Patient Constitutional: General Appearance: healthy- appearing, well-developed, overweight. Level of Distress: NAD Psychiatric: Insight: good judgement. Men melodie Status: active and alert. Orientation: to time, to nia ce, to person. Memory: recent memory normal, remote memory normal Head: Head: normocephalic, atrauma tic Eyes: Lids and Conjunctivae: non-i njected, no discharge, no pallor. EOM: EOMI. Sclerae: non-icteric ENMT: Ears: no lesions on external ear. Hearing: no hearing loss. Nose: no lesions on external nose Lungs: Respiratory effort: no dyspn ea Neurologic: Cranial Nerves: grossly inta ct. Coordination and Cerebellum: no tremor Skin: Inspection and palpation: no rash, no lesions, no jaundice
[2019-08-17 20:23] VITALS: BMI 54.3
[2019-08-17] MEDS ORDERED: MELATONIN 3 MG TABLET PO PRN (20:29)
[2019-08-17] MEDS ORDERED: HYDRALAZINE HCL 10 MG TABLET PO PRN (20:34)
[2019-08-17] MEDS ORDERED: LORAZEPAM 1 MG TABLET PO PRN (20:39)
[2019-08-17] MEDS ORDERED: ACETAMINOPHEN 325 MG TABLET PO PRN (20:40)
[2019-08-17] MEDS ORDERED: ONDANSETRON 4 MG (ODT) TAB PO PRN (20:41)
[2019-08-17] MEDS ORDERED: D50W 25 GM/50 ML SYRINGE/VIAL IV PRN (20:43)
[2019-08-17] MEDS ORDERED: GLUCAGON 1 MG/VIAL IM PRN (20:43)
[2019-08-17] MEDS: ATORVASTATIN 10 MG TAB PO SCH (20:56)
[2019-08-17] MEDS: GABAPENTIN 400 MG CAP PO SCH (20:57)
[2019-08-17] MEDS: INSULIN -REGULAR HUMAN 50 UNIT/0.5 ML ML SQ SCH (21:00)
[2019-08-17] MEDS: MORPHINE 15 MG IR TAB PO PRN (21:03)
[2019-08-18 01:00] LABS: Urine Appearance CLEAR; Urine Bilirubin NEGATIVE (NEG); Urine Blood 1+ (NEG); Urine Color YELLOW; Urine Glucose NEGATIVE (NEG); Urine Protein NEGATIVE (NEG); Urine Specific Gravity 1.015 (1.005-1.030); Urine pH 7.5 (5.0-7.0)
[2019-08-18] MEDS: LORAZEPAM 1 MG TABLET PO SCH ×2 (01:00→20:37)
[2019-08-18 01:55] LABS: Urine Culture Reflex Order NOT NEEDED
[2019-08-18 01:57] LABS: Urine Bacteria >50 /HPF (<20); Urine Urothelial Cells <5 /HPF (NONE SEEN)
[2019-08-18 05:52] LABS: Absolute Lymphocytes (CBC) 1.7 K/uL (0.7-4.9); Basophils % 0.8 % (0-1.3); Hematocrit 32.2 % (36.0-45.0); Lymphocytes % 29.2 % (15.3-44.8); MPV 9.3 fL (7.6-11.3); RBC Red Blood Cell Count 3.67 M/uL (3.86-4.86)
[2019-08-18 06:07] LABS: Albumin 2.4 g/dL (3.4-5.0); Magnesium 2.3 mg/dL (1.8-2.4); Potassium 4.4 mmol/L (3.5-5.1); Prealbumin 13.5 mg/dL (20-40)
[2019-08-18] MEDS: LEVOTHYROXINE SOD 0.125 MG TAB PO SCH (06:26)
[2019-08-18] MEDS: INSULIN -REGULAR HUMAN 50 UNIT/0.5 ML ML SQ SCH ×4 (07:30→20:38)
[2019-08-18] MEDS: SERTRALINE HCL 100 MG TAB PO SCH (08:00)
[2019-08-18] MEDS: GABAPENTIN 400 MG CAP PO SCH ×2 (08:00→13:59)
[2019-08-18] MEDS: METOPROLOL TAR 50 MG TAB PO SCH ×2 (08:00→19:36)
[2019-08-18] MEDS: PIOGLITAZONE 15 MG TAB PO SCH (08:00)
[2019-08-18] MEDS: TAMSULOSIN 0.4 MG SR CAP PO SCH (08:00)
[2019-08-18] MEDS: ENOXAPARIN 40 MG/0.4 ML SQ SCH ×2 (08:01→19:35)
[2019-08-18] MEDS: MORPHINE 15 MG IR TAB PO PRN ×3 (09:39→19:37)
[2019-08-18] MEDS: LIDOCAINE 4% PATCH TOP SCH (09:40)
[2019-08-18] MEDS: POLYETHYL GLY 3350 17 GM/DOSE PO PRN (14:11)
--- NOTE | 2019-08-18 17:29 | R.HP ---
FACILITY: [facility] ENCOUNTER DATE AND TIME: 08/18/2019 17:24 (CDT) MR#: [id number] NAME JENNI QUINONES ADDRESS: [address] [place] [address] CITY: [place] [address] [id number] PHONE: [phone] DATE OF : 1965 AGE: 53 SSN# [id number] GENDER: Female DEXTERITY Right-handed MARITAL STATUS RACE White PRE-HOSPITAL LIVING SETTING 01 - Home (private home/apt. board/care, assisted living, nursing home, transitional living) PRE-HOSPITAL LIVING WITH Other ENCOUNTER PHYSICIAN: Dr. Ian Kelly M.D. REFERRING DOCTOR: Dr Jordana Mathews DATE OF ADMISSION: 08/17/2019 18:03 (CDT) REFERRING FACILITY [facility] TYPE AND DETAILS: Type of home: single family house # of levels in the residence: 1 # of steps within the residence: 1 # of steps to enter the residence: 1 Patient lives at home with her and is independent with ADL's ONSET DATE: 08/07/2019 PRIMARY DIAGNOSIS-RELATED SURGERIES: Emergency ORIF of Left Foot - performed by Dr Jordana Mathews on 08/09/2019 HISTORY OF PRESENT ILLNESS (HPI): Pt. is a 53 yo Right-handed white female. On 08/07/2019 she was admitted to [facility] and underwent emergency surgery for 4+ Rib FX's, Frac tures of L Foot (closed) (ORIF of Left Foot ) by Dr Jordana Mathews. Pre-morbidly, Pt. was independent/mod-I in Transfers Control, Locomotion, and Self-Care; and she had good Balance, Safety Awareness, Social Cognition, Sphincter Control, and Communication. Currently, she has deficits of Transfers Control, Balance, Locomotion, Safety Awareness, and Self-Car e. Pt. is now referred to [facility] for acute in-patient rehabilitation in order to maximize patient's functional independence in activities of daily living, strength, ROM, and mobi lity. Patient has realistic goal of being discharged at assistance level 6-Jaquan to reside at Home with Spo use. MEDICATION ALLERGIES: No Known Drug Allergies (NKDA) ENVIRONMENTAL ALLERGIES: None Known - Substance Allergies None Known - Other Allergies None Known PAST MEDICAL HISTORY: HTN HLD HYPOTHYROID Diabetes PAST SURGICAL HISTORY: cholecystectomy HYSTERECTOMY FAMILY HISTORY: Family history is not contributory. REVIEW OF SYSTEMS: - Gen No Chills No Fatigue No Fever - Eyes No Double Vision No itchiness - ENMT No Difficulty Swallowing - CVS Chest Discomfort No Chest Pain No Fatigue No Weight Gain - Resp No Cough No Shortness of Breath - GI Continent No Abdominal Pain No Constipation No Diarrhea - Continent No Kidney Pain No Painful Urination No Urinary Urgency - MSK No Joint Pain Muscle Cramps Stiffness - Skin No Itching No Rash No Suspicious Lesions - Neuro Coordination Difficulty No Difficulty with Concentration No Memory Loss No Seizures Weakness - Psych No Anxiety No Depression No HIV Exposure No Persistent Infections No Seasonal Allergies - Endo No Cold/Heat Intolerance No Excessive Hunger No Excessive Thirst No Excessive Urination PHYSICAL EXAM - Gen Alert and awake Lying in bed No apparent distress Oriented to: person, time, and place - Skin No skin breakdown. No abnormalities - Eyes No abnormalities - ENMT No abnormalities - Neck No abnormalities - CVS RRR - Chest No abnormalities - Resp No wheezing - Abd Soft - GI Obese Deferred - Urinary retention - Ext No significant edema - MSK 4+/5 weakness in both lower extremities. - Neuro No focal deficits - Psych No abnormalities VITAL SIGNS Temperature: 97.2 F SBP/DBP: 124/61 Pulse: 53 Resp: 16 NURSING: - Shower allowing shower - Skin care per protocol PRECAUTIONS: - Weight Bearing Precaution NWB left LE ACTIVITIES OOB only with supervision QI SCORES: - Self-Care A. Eating 04-Supervision or touching assistance B. Oral hygiene 04-Supervision or touching assistance C. Toileting hygiene 04-Supervision or touching assistance E. Shower/bathe self 03-Partial/moderate assistance F. Upper body dressing G. Lower body dressing H. Putting on/taking off footwear - Mobility A. Roll left and right 04-Supervision or touching assistance B. Sit to lying 04-Supervision or touching assistance C. Lying to sitting on side of bed 04-Supervision or touching assistance D. Sit to stand 04-Supervision or touching assistance E. Chair/gwi-fh-brtwb transfer 04-Supervision or touching assistance F. Toilet transfer 04-Supervision or touching assistance G. Car transfer 88-Not attempted due to medical condition or safety concerns I. Walk 10 feet 88-Not attempted due to medical condition or safety concerns J. Walk 50 feet with two turns 88-Not attempted due to medical condition or safety concerns K. Walk 150 feet 88-Not attempted due to medical condition or safety concerns L. Walking 10 feet on uneven surfaces 88-Not attempted due to medical condition or safety concerns M. 1 step (curb) 88-Not attempted due to medical condition or safety concerns N. 4 steps 88-Not attempted due to medical condition or safety concerns O. 12 steps 88-Not attempted due to medical condition or safety concerns P. Picking up object 88-Not attempted due to medical condition or safety concerns - Bladder and Bowel Bladder continence 0-Always continent Bowel continence 0-Always continent - Endurance Poor - Balance Poor - Safety Awareness Poor CURRENT FUNC. DEFICITS: Self-Care, Mobility, Endurance, Balance, and Safety Awareness MEDICATIONS: - Other See attached MAR (Medication Administration Record) ASSESSMENT: Pt. is a 53 yo Right-handed white female.On 08/07/[address] [facility] emergency surgery for 4+ Rib FX's, Fractures of L Foot (closed) (ORIF of Left Foot ) by Dr Jordana Mahtews.Pre-morbidly, Pt. was independent/mod-I in Transfers Control, Locomotion, and Self-Care; and she had good Balance, Safety Awareness, Social Cognition, Sphincter Control, and Communication.Curre ntly, she has deficits of Transfers Control, Balance, Locomotion, Safety Awareness, and Self-Care.Pt. is now referred to [facility] for acute in-patient rehabilitation in order to maximize patient's functional independence in activities of daily living, strength, ROM, and mobilit y.- Rehab Goal Patient has realistic goal of being discharged at assistance level 6-Jaquan to reside at Home with Spo use. REHAB PLAN: - Physical Therapy Decreased range of motion - to improve, our physical therapists will perform initial evaluation of pt 's status upon admission and devise an individualized program for increasing patient's Range of Motio n. Gait dysfunction - to improve, our physical therapists will perform initial evaluation of pt's status upon admission and devise an individualized program for Gait Training, and Wheel Chair mobility Inability to transfer - to improve, our physical therapists will perform initial evaluation of pt's s tatus upon admission and devise an individualized program for Bed mobility Need for home safety evaluation - to improve, our physical therapists will perform initial evaluation of pt's status upon admission and devise an individualized program for Home Evaluation Need in caregiver upon discharge - to improve, our physical therapists will perform initial evaluatio n of pt's status upon admission and devise an individualized program for Caregiver Training Edema - to improve, our physical therapists will perform initial evaluation of pt's status upon admi ssion and devise an individualized program for Elevation Training, and Lymphedema Therapy New precaution - to improve, our physical therapists will perform initial evaluation of pt's status u vargas admission and devise an individualized program for Patient precaution education Poor balance - to improve, our physical therapists will perform initial evaluation of pt's status upo n admission and devise an individualized program for Balance Training Weakness - to improve, our physical therapists will perform initial evaluation of pt's status upon ad mission and devise an individualized program for Aquatic Therapy, Neuromuscular Reeducation, and Stre ngthening Achieving independence - to improve, our physical therapists will perform initial evaluation of pt's status upon admission and devise an individualized program for Community Reintegration Activities - Occupational Therapy ADL deficits - to improve, our occupation therapists will perform initial evaluation of pt's status u vargas admission and devise an individualized program for Bathing, Bed mobility, Community Reintegration , Cooking, Dressing, Eating, Fine Motor Skills, Grooming, Homemaking, Kitchen Mobility, Laundry, Saritha ent Education, Safety Awareness, Splinting - Positioning, Transfers(Toilet, Tub, Shower), and Wheel C hair Management Need for acute care clinical nurse specialist - to improve, our occupation therapists will perform initial evaluation of pt's s tatus upon admission and devise an individualized program for Caregiver Training Weakness - to improve, our occupation therapists will perform initial evaluation of pt's status upon admission and devise an individualized program for Aquatic Therapy, Balance, Endurance, UE ROM, and U E strengthening MEDICAL PLAN: - Diet Type Start Regular - Diet - Liquid Texture Start Regular - Tube Feed Start N/A - Weight Bearing Precaution NWB left LE - Skin care per protocol - Other See attached MAR (Medication Administration Record) - Diet - Solid Texture Regular - Shower shower DISCHARGE PLAN: - Estimated Length of Stay (days) 13. - Consensus on plan Discharge plan has been discussed with primary caregiver. Patient/Family is in agreement with the nia n. Primary caregiver is in agreement with the plan. - Patient/Family Goals Return home with assistance. - Planned Living Setting Upon Discharge Home, to live with Spouse. SIGNATURE PANEL: (CDT)
--- NOTE | 2019-08-18 17:30 | PAPE ---
PATIENT: [facility] MR# [id number] REFERRING DOCTOR Dr Jordana Mathews EVALUATION DATE AND TIME 08/18/2019 17:29 (CDT) NAME JENNI QUINONES DATE OF 1965 AGE 53 PHONE [phone] SSN# [id number] GENDER female EVALUATING PHYSICIAN Dr. Ian Kelly M.D. ADMISSION DIAGNOSIS: 4+ Rib FX's, Fractures of L Foot (closed) ONSET DATE 08/07/2019 POST-ADMISSION FUNCTIONAL/MEDICAL STATUS: - Bladder Same accident frequency: Ind - No accidents in the past 7 days - Bowel Same accident frequency: Ind - No accidents in the past 7 days - Walking Same score based on distance walked: 1(<=50ft) STATUS CHANGE EVALUATION: No change in Functional or Medical Status is identified compared with Pre-Admission screening. PATIENT NEEDS CLOSE MEDICAL SUPERVISION BY A REHABILITATION PHYSICIAN FOR: Coordination of Treatment Team Post-Op Complications PATIENT REQUIRES 24X7 REHAB NURSING FOR MEDICAL AND FUNCTIONAL MGT. OF THE FOLLOWING DEFICITS: Disease Management Medication Management Patient/Family Education Providing Safe Environment PATIENT REQUIRES INTENSIVE, COORDINATED INTERDISCIPLINARY APPROACH TO REHAB: Arranging Home Equipment/Services Discharge Planning Family Intervention/Training Marketing Intern/Case Management LIST OF IDENTIFIED AND POTENTIAL PROBLEMS: Alteration in leisure activities Bladder, Incontinence Bowel, Incontinence Infection, Actual or Potential Mobility Impaired Pain, Alteration in Comfort Self Care Deficit Skin Integrity, Actual or Potential Urinary Tract Infection (UTI), Actual or Potential PATIENT COULD BE AT RISK FOR COMPLICATIONS FROM ADVERSE MEDICAL CONDITIONS DUE TO HIS/HER COMORBIDITI ES AND THE RIGORS OF THE INTENSIVE REHABILLITATION PROGRAM. METHODS OR INTERVENTIONS TO AVOID COMPLIC ATIONS INCLUDE: - Infection Clinical staff to assess and manage the signs and symptoms of infection including fever, redness, war mth, etc. - Urinary Tract Infection - Falls Patient will be evaluated for Fall Precautions and will be placed on Fall Precautions as indicated pe r protocol. - Skin Breakdown Nursing will assess skin daily using assessment tool and will place on Skin Breakdown Precautions as indicated per protocol. - Pain Clinical staff may employ non-medication methods such as massage, distraction, decrease stimulus, etc . as needed. Clinical staff will assess patient's pain level every shift per protocol to assess and e nsure pain management effectiveness. Medications will be given and the pain level re-assessed. PRELIMINARY PLAN OF CARE: - Physical Therapy Patient needs Physical Therapy for a daily minimum of 1.5 hours at least 5 out of 7 days, to improve: Mobility, Strengthening, Transfers, Stretching, ROM, Endurance, Ability to manage stairs, Gait, and Balance. - Rehabilitation Nursing Patient requires 24x7 Rehabilitation Nursing for: Pain Issues, Identifying and preventing risk factor s, Monitoring and reporting current medical conditions, Assisting with ambulation and transfer, Sukh ting with all ADL-s, Teaching patients about disease process and medications, Family teaching, Provid ing safe environment, Bowel and Bladder Issues, Skin Integrity, and Medication Management. Patient needs Marketing Intern and/or Case Management for: Discharge Planning, Arranging Home Equipmen t or Services, and Family Interventions. - Dietary and Nutrition Services Patient needs Dietary and Nutrition Services for: Adequate Nutrition, Nutritional Supplements, and Nu tritional Education. - Occupational Therapy Patient needs Occupational Therapy for a daily minimum of 1.5 hours at least 5 out of 7 days, to impr ove Activities of Daily Living, including: Eating, Grooming, Bathing, Dressing, Toileting, Toilet Tra nsfers, Community Reintegration, Higher functional activities, Adaptive Equipment, Splinting, Househo ld Tasks, and Other activities as determined. QI SCORES: - Self-Care A. Eating 04-Supervision or touching assistance B. Oral hygiene 04-Supervision or touching assistance C. Toileting hygiene 04-Supervision or touching assistance E. Shower/bathe self 03-Partial/moderate assistance F. Upper body dressing G. Lower body dressing H. Putting on/taking off footwear - Mobility A. Roll left and right 04-Supervision or touching assistance B. Sit to lying 04-Supervision or touching assistance C. Lying to sitting on side of bed 04-Supervision or touching assistance D. Sit to stand 04-Supervision or touching assistance E. Chair/[id number]-ad-tijcq transfer 04-Supervision or touching assistance F. Toilet transfer 04-Supervision or touching assistance G. Car transfer 88-Not attempted due to medical condition or safety concerns I. Walk 10 feet 88-Not attempted due to medical condition or safety concerns J. Walk 50 feet with two turns 88-Not attempted due to medical condition or safety concerns K. Walk 150 feet 88-Not attempted due to medical condition or safety concerns L. Walking 10 feet on uneven surfaces 88-Not attempted due to medical condition or safety concerns M. 1 step (curb) 88-Not attempted due to medical condition or safety concerns N. 4 steps 88-Not attempted due to medical condition or safety concerns O. 12 steps 88-Not attempted due to medical condition or safety concerns P. Picking up object 88-Not attempted due to medical condition or safety concerns - Bladder and Bowel Bladder continence 0-Always continent Bowel continence 0-Always continent - Endurance Poor - Balance Poor - Safety Awareness Poor POTENTIAL FUNCTIONAL GOALS FOR PATIENT TO ACHIEVE BY DISCHARGE: - Safety Precaution Patient will remain free from falls or injury at time of discharge. - Bed Mobility Patient will perform bed mobility at 4-Teresa level of assistance. - Transfers Patient will complete transfers from bed to chair at 4-Teresa level of assistance. - Mobility Patient will ambulate 150 ft with 4-Teresa level of assistance with RW. PATIENT REHAB POTENTIAL Diana QUINONES is able and expected to receive 3 hours of individualized therapy daily on at least 5 of aaliyah ry 7 days Diana QUINONES's prognosis for significant practical improvement within a reasonable period of time appears Good Expected level of measurable improvement will be of a practical value to Diana QUINONES's functional capaci ty or adaptations to impairments Has a viable Discharge Plan Medically appropriate; condition is sufficiently stable to participate in intensive rehab program DISCHARGE PLAN: - Estimated Length of Stay (days) 13. - Consensus on plan Discharge plan has been discussed with primary caregiver. Patient/Family is in agreement with the nia n. Primary caregiver is in agreement with the plan. - Patient/Family Goals Return home with assistance. - Planned Living Setting Upon Discharge Home, to live with Spouse. CONCLUSION ON REHABILITATION NECESSITY: I have evaluated patient's pre-admission functional status and, comparing it to the patient's post-ad mission functional status now, I conclude that the pre-admission assessment was accurate. Patient's c ondition on admission supports the medical necessity of admission to IRF. It is safe to proceed with patient's therapy program. SIGNATURE PANEL: (CDT)
[2019-08-18] MEDS: GABAPENTIN 300 MG CAP PO SCH (19:35)
[2019-08-18] MEDS: methocarbamoL 750 MG TAB PO PRN (20:36)
[2019-08-18] MEDS: ATORVASTATIN 10 MG TAB PO SCH (20:38)
[2019-08-19] MEDS: ENOXAPARIN 40 MG/0.4 ML SQ SCH (07:19)
[2019-08-19] MEDS: LIDOCAINE 4% PATCH TOP SCH (07:19)
[2019-08-19] MEDS: LEVOTHYROXINE SOD 0.125 MG TAB PO SCH (07:20)
[2019-08-19] MEDS: TRAMADOL HCL 50 MG TAB PO PRN ×2 (07:20→12:46)
[2019-08-19] MEDS: INSULIN -REGULAR HUMAN 50 UNIT/0.5 ML ML SQ SCH ×4 (07:30→20:15)
[2019-08-19] MEDS: TAMSULOSIN 0.4 MG SR CAP PO SCH (08:38)
[2019-08-19] MEDS: SERTRALINE HCL 100 MG TAB PO SCH (08:38)
[2019-08-19] MEDS: PIOGLITAZONE 15 MG TAB PO SCH (08:40)
[2019-08-19] MEDS: GABAPENTIN 300 MG CAP PO SCH ×2 (08:40→20:13)
[2019-08-19] MEDS: METOPROLOL TAR 50 MG TAB PO SCH ×2 (08:44→20:14)
[2019-08-19] MEDS: methocarbamoL 750 MG TAB PO PRN ×2 (11:52→20:13)
[2019-08-19] MEDS: MORPHINE 15 MG IR TAB PO PRN ×2 (16:11→20:14)
[2019-08-19] MEDS ORDERED: DOCUSATE NA/SENNA CONC 1 TAB PO PRN (18:03)
[2019-08-19] MEDS: LORAZEPAM 1 MG TABLET PO SCH (20:13)
[2019-08-19] MEDS: ATORVASTATIN 10 MG TAB PO SCH (20:13)
[2019-08-19] MEDS: MAGNESIUM OXIDE 400 MG TAB PO SCH (20:14)
[2019-08-20] MEDS: MORPHINE 15 MG IR TAB PO PRN ×2 (03:36→19:46)
[2019-08-20 06:16] LABS: Hematocrit 31.9 % (36.0-45.0); Lymphocytes % 29.6 % (15.3-44.8); MPV 9.2 fL (7.6-11.3); RBC Red Blood Cell Count 3.67 M/uL (3.86-4.86)
[2019-08-20] MEDS: LEVOTHYROXINE SOD 0.125 MG TAB PO SCH (06:23)
[2019-08-20] MEDS: LIDOCAINE 4% PATCH TOP SCH (06:56)
[2019-08-20 07:01] LABS: Albumin 2.7 g/dL (3.4-5.0); Magnesium 2.2 mg/dL (1.8-2.4); Potassium 4.5 mmol/L (3.5-5.1); Prealbumin 12.4 mg/dL (20-40)
[2019-08-20] MEDS: INSULIN -REGULAR HUMAN 50 UNIT/0.5 ML ML SQ SCH ×4 (07:30→20:53)
[2019-08-20] MEDS: TRAMADOL HCL 50 MG TAB PO PRN (07:36)
[2019-08-20] MEDS: TAMSULOSIN 0.4 MG SR CAP PO SCH (07:37)
[2019-08-20] MEDS: METOPROLOL TAR 50 MG TAB PO SCH ×2 (07:37→19:48)
[2019-08-20] MEDS: PIOGLITAZONE 15 MG TAB PO SCH (07:37)
[2019-08-20] MEDS: GABAPENTIN 300 MG CAP PO SCH ×2 (07:38→19:45)
[2019-08-20] MEDS: SERTRALINE HCL 100 MG TAB PO SCH (07:38)
[2019-08-20] MEDS: ENOXAPARIN 40 MG/0.4 ML SQ SCH (07:39)
[2019-08-20] MEDS: MAGNESIUM OXIDE 400 MG TAB PO SCH ×2 (07:39→19:46)
[2019-08-20] MEDS: POLYETHYL GLY 3350 17 GM/DOSE PO PRN (09:25)
--- NOTE | 2019-08-20 10:34 | R.PN ---
ENCOUNTER DATE AND TIME: 08/19/2019 10:27 (CDT) NAME JENNI QUINONES DATE OF : 1965 DATE OF ADMISSION: 08/17/2019 18:03 (CDT) 4+ Rib FX's, Fractures of L Foot (closed)SUBJECTIVE: Pt denied any depression. Pt denied any Shortness of Breath. WBC 5.9, Hgb 10.4, prealbumin 13.5, glucose 72 to 101. Ambulated 4' x 2 with moderate assistance using a rolling walker. Mobilized wheelchair 250' x 2 with standby assistance. VITAL SIGNS Temperature: 97.3 F SBP/DBP: 110/52 Pulse: 57 Resp: 15 MEDICATION ALLERGIES: No Known Drug Allergies (NKDA) ENVIRONMENTAL ALLERGIES: None Known - Substance Allergies None Known - Other Allergies None Known NURSING: - Shower allowing shower - Skin care per protocol PRECAUTIONS: - Weight Bearing Precaution NWB left LE ACTIVITIES OOB only with supervision THERAPIES: - Dietary and Nutrition Adequate Nutrition. Nutritional Education. Nutritional Supplements. PHYSICAL EXAM - Gen Alert and awake Lying in bed No apparent distress Oriented to: person, time, and place - Skin No skin breakdown. No abnormalities - Eyes No abnormalities - ENMT No abnormalities - Neck No abnormalities - CVS RRR - Chest No abnormalities - Resp No wheezing - Abd Soft - GI Obese Deferred - Urinary retention - Ext No significant edema - MSK 4+/5 weakness in both lower extremities. - Neuro No focal deficits - Psych No abnormalities ASSESSMENT: Pt. is a 53 yo Right-handed white female.On 08/07/2019 she was admitted to [facility] emergency surgery for 4+ Rib FX's, Fractures of L Foot (closed) (ORIF of Left Foot ) by Dr Jordana Mathews.Pre-morbidly, Pt. was independent/mod-I in Transfers Control, Locomotion, and Self-Care; and she had good Balance, Safety Awareness, Social Cognition, Sphincter Control, and Communication.Curre ntly, she has deficits of Transfers Control, Balance, Locomotion, Safety Awareness, and Self-Care.Pt. is now referred to [facility] for acute in-patient rehabilitation in order to maximize patient's functional independence in activities of daily living, strength, ROM, and mobilit y.- Rehab Goal Patient has realistic goal of being discharged at assistance level 6-Jaquan to reside at Home with Spo use. MDM/PLAN: - Physical Therapy Decreased range of motion - to improve, our physical therapists will perform initial evaluation of p t's status upon admission and devise an individualized program for increasing patient's Range of Castillo on. Gait dysfunction - to improve, our physical therapists will perform initial evaluation of pt's statu s upon admission and devise an individualized program for Gait Training, and Wheel Chair mobility Inability to transfer - to improve, our physical therapists will perform initial evaluation of pt's status upon admission and devise an individualized program for Bed mobility Need for home safety evaluation - to improve, our physical therapists will perform initial evaluatio n of pt's status upon admission and devise an individualized program for Home Evaluation Need in caregiver upon discharge - to improve, our physical therapists will perform initial evaluati on of pt's status upon admission and devise an individualized program for Caregiver Training Edema - to improve, our physical therapists will perform initial evaluation of pt's status upon admis khloe and devise an individualized program for Elevation Training, and Lymphedema Therapy New precaution - to improve, our physical therapists will perform initial evaluation of pt's status upon admission and devise an individualized program for Patient precaution education Poor balance - to improve, our physical therapists will perform initial evaluation of pt's status up on admission and devise an individualized program for Balance Training Weakness - to improve, our physical therapists will perform initial evaluation of pt's status upon a dmission and devise an individualized program for Aquatic Therapy, Neuromuscular Reeducation, and Str engthening Achieving independence - to improve, our physical therapists will perform initial evaluation of pt's status upon admission and devise an individualized program for Community Reintegration Activities - Occupational Therapy ADL deficits - to improve, our occupation therapists will perform initial evaluation of pt's status upon admission and devise an individualized program for Bathing, Bed mobility, Community Reintegratio n, Cooking, Dressing, Eating, Fine Motor Skills, Grooming, Homemaking, Kitchen Mobility, Laundry, Pat ient Education, Safety Awareness, Splinting - Positioning, Transfers(Toilet, Tub, Shower), and Wheel Chair Management Need for outdoor emergency care technician - to improve, our occupation therapists will perform initial evaluation of pt's status upon admission and devise an individualized program for Caregiver Training Weakness - to improve, our occupation therapists will perform initial evaluation of pt's status upon admission and devise an individualized program for Aquatic Therapy, Balance, Endurance, UE ROM, and UE strengthening - Other See attached MAR (Medication Administration Record) - Diet Type Continue Regular - Diet - Liquid Texture Continue Regular - Tube Feed Continue N/A - Weight Bearing Precaution NWB left LE - Skin care per protocol - Diet - Solid Texture Continue Regular - Shower allowing shower FUNCTIONAL STATUS: UPDATED AT WEEKLY TEAM CONFERENCE - Bladder Same accident frequency: 7-Ind - No accidents in the past 7 days - Bowel Same accident frequency: 7-Ind - No accidents in the past 7 days - Walking Same score based on distance walked: 1(<=50ft) FUNCTIONAL STATUS: - Self-Care A. Eating Jaquan B. Grooming Jaquan C. Bathing modA D. Dressing - Upper Teresa E. Dressing - Lower modA F. Toileting Teresa - Sphincter Control G. Bladder control Jaquan H. Bowel control Jaquan - Transfers Control I. Bed/Chair/Wheelchair Teresa J. Toilet Teresa K. Tub/Shower modA - Locomotion L. Walk/Wheelchair (B) modA M. Stairs Dep - Communication N. Comprehension (B) Ind O. Expression (B) Ind - Social Cognition P. Social Interaction Ind Q. Problem Solving Ind R. Memory Ind - Endurance Fair - Balance Fair - Safety Awareness Fair QI SCORES: - Self-Care A. Eating 04-Supervision or touching assistance B. Oral hygiene 04-Supervision or touching assistance C. Toileting hygiene 04-Supervision or touching assistance E. Shower/bathe self 03-Partial/moderate assistance F. Upper body dressing G. Lower body dressing H. Putting on/taking off footwear - Mobility A. Roll left and right 04-Supervision or touching assistance B. Sit to lying 04-Supervision or touching assistance C. Lying to sitting on side of bed 04-Supervision or touching assistance D. Sit to stand 04-Supervision or touching assistance E. Chair/npf-tz-okrij transfer 04-Supervision or touching assistance F. Toilet transfer 04-Supervision or touching assistance G. Car transfer 88-Not attempted due to medical condition or safety concerns I. Walk 10 feet 88-Not attempted due to medical condition or safety concerns J. Walk 50 feet with two turns 88-Not attempted due to medical condition or safety concerns K. Walk 150 feet 88-Not attempted due to medical condition or safety concerns L. Walking 10 feet on uneven surfaces 88-Not attempted due to medical condition or safety concerns M. 1 step (curb) 88-Not attempted due to medical condition or safety concerns N. 4 steps 88-Not attempted due to medical condition or safety concerns O. 12 steps 88-Not attempted due to medical condition or safety concerns P. Picking up object 88-Not attempted due to medical condition or safety concerns - Bladder and Bowel Bladder continence 0-Always continent Bowel continence 0-Always continent - Endurance Poor - Balance Poor - Safety Awareness Poor CURRENT FUNC. DEFICITS: Self-Care, Mobility, Endurance, Balance, and Safety Awareness SIGNATURE PANEL: (CDT)
--- NOTE | 2019-08-20 14:38 | FAST ---
ENCOUNTER DATE AND TIME: 08/20/2019 08:00 (CDT) NAME JENNI QUINONES DATE OF : 1965 DATE OF ADMISSION: 08/17/2019 18:03 (CDT) PHONE: [phone] AGE: 53 SSN# [id number] GENDER: Female ENCOUNTER PHYSICIAN: Dr. Ian Kelly M.D. ADMISSION DIAGNOSIS: - Orthopaedic Disorders 08 - Major Multiple Fractures (08.4) 4+ Rib FX's, Fractures of L Foot (closed). EATING: Not assessed/no information CODE: - ORAL HYGIENE: ORAL HYGIENE - STEP 1: Does the patient complete the activity by him/herself with no assistance (physical, verbal/nonverbal cueing, setup/clean-up)? Yes. 1. [id number] ADMISSION PERFORMANCE: Independent CODE: 06 TOILETING HYGIENE: Not assessed/no information CODE: - BATHING: SHOWER/BATHE SELF - STEP 1: Does the patient complete the activity by him/herself with no assistance (physical, verbal/nonverbal cueing, setup/clean-up)? No. SHOWER/BATHE SELF - STEP 2: Does the patient need only setup/clean-up assistance from one helper? No. SHOWER/BATHE SELF - STEP 3: Does the patient need only verbal/nonverbal cueing or touching/steadying/contact guard assistance fro m one helper? Yes. 1. [id number] ADMISSION PERFORMANCE: Supervision or touching assistance CODE: 04 DRESSING - UPPER BODY: DRESSING - UPPER BODY - STEP 1: Does the patient complete the activity by him/herself with no assistance (physical, verbal/nonverbal cueing, setup/clean-up)? No. DRESSING - UPPER BODY - STEP 2: Does the patient need only setup/clean-up assistance from one helper? Yes. 1. [id number] ADMISSION PERFORMANCE: Setup or clean-up assistance CODE: 05 DRESSING - LOWER BODY: DRESSING - LOWER BODY - STEP 1: Does the patient complete the activity by him/herself with no assistance (physical, verbal/nonverbal cueing, setup/clean-up)? No. DRESSING - LOWER BODY - STEP 2: Does the patient need only setup/clean-up assistance from one helper? No. DRESSING - LOWER BODY - STEP 3: Does the patient need only verbal/nonverbal cueing or touching/steadying/contact guard assistance fro m one helper? No. DRESSING - LOWER BODY - STEP 4: Does the patient need physical assistance - for example lifting or trunk support from one helper - wi th the helper providing less than half of the effort? Yes. 1. [id number] ADMISSION PERFORMANCE: Partial/moderate assistance CODE: 03 PUTTING ON/TAKING OFF FOOTWEAR: FOOTWEAR - STEP 1: Does the patient complete the activity by him/herself with no assistance (physical, verbal/nonverbal cueing, setup/clean-up)? No. FOOTWEAR - STEP 2: Does the patient need only setup/clean-up assistance from one helper? No. FOOTWEAR - STEP 3: Does the patient need only verbal/nonverbal cueing or touching/steadying/contact guard assistance fro m one helper? Yes. 1. [id number] ADMISSION PERFORMANCE: Supervision or touching assistance CODE: 04 DOES THE PATIENT USE A WHEELCHAIR/SCOOTER? CODE: EXPR INDICATE THE TYPE OF WHEELCHAIR/SCOOTER USED: CODE: EXPR INDICATE THE TYPE OF WHEELCHAIR/SCOOTER USED: CODE: EXPR BLADDER AND BOWEL: CODE: EXPR CODE: EXPR SIGNATURE PANEL: The following modified sections: 1. [id number] Admission Performance, 1. [id number] Admission Performance, 1. [id number] Admission Performance, 1. [id number] Admission Performance, 1. [id number] Admission Performance were [electronically] signed by ANDRES Sotomayor on SatAug 20 2019 14:37:29 GMT-0500 (Central Daylight Time)
[2019-08-20] MEDS: LORAZEPAM 1 MG TABLET PO SCH (19:45)
[2019-08-20] MEDS: methocarbamoL 750 MG TAB PO PRN (19:45)
[2019-08-20] MEDS: ATORVASTATIN 10 MG TAB PO SCH (19:46)
[2019-08-21] MEDS: LEVOTHYROXINE SOD 0.125 MG TAB PO SCH (06:37)
[2019-08-21] MEDS: MORPHINE 15 MG IR TAB PO PRN ×2 (06:38→19:49)
[2019-08-21] MEDS: ENOXAPARIN 40 MG/0.4 ML SQ SCH (06:59)
[2019-08-21] MEDS: LIDOCAINE 4% PATCH TOP SCH (06:59)
[2019-08-21] MEDS: INSULIN -REGULAR HUMAN 50 UNIT/0.5 ML ML SQ SCH ×4 (07:30→19:51)
[2019-08-21] MEDS: PIOGLITAZONE 15 MG TAB PO SCH (07:31)
[2019-08-21] MEDS: GABAPENTIN 300 MG CAP PO SCH ×2 (07:31→19:50)
[2019-08-21] MEDS: METOPROLOL TAR 50 MG TAB PO SCH ×2 (07:32→19:50)
[2019-08-21] MEDS: MAGNESIUM OXIDE 400 MG TAB PO SCH ×2 (07:32→19:49)
[2019-08-21] MEDS: SERTRALINE HCL 100 MG TAB PO SCH (07:32)
[2019-08-21] MEDS: TAMSULOSIN 0.4 MG SR CAP PO SCH (07:32)
--- NOTE | 2019-08-21 09:33 | P.RH.PN ---
Estimated Length of Stay: 16 Expected Discharge Date: 09/01/19 Discharge Disposition Plan: Home Family Support: Yes [facility] Goal: Mobility, Transfers, Self Care Vital Signs: Last Vital Signs Temp 97.4 F 08/21/19 08:07 Pulse 53 08/21/19 08:07 Resp 16 08/21/19 08:07 BP 107/63 08/21/19 08:07 Pulse Ox 100 08/21/19 08:07 Laboratory: Laboratory Last Values WBC 6.7 K/uL (4.3-10.9) 08/20/19 06:01 RBC 3.67 M/uL (3.86-4.86) L 08/20/19 06:01 Hgb 10.7 g/dL (12.0-15.0) L 08/20/19 06:01 Hct 31.9 % (36.0-45.0) L 08/20/19 06:01 MCV 87.0 fL (80-100) 08/20/19 06:01 MCH 29.2 pg (27.0-35.0) 08/20/19 06:01 MCHC 33.6 g/dL (32.0-36.0) 08/20/19 06:01 RDW 13.8 % (12.1-15.2) 08/20/19 06:01 Plt Count 254 K/uL (152-406) 08/20/19 06:01 MPV 9.2 fL (7.6-11.3) 08/20/19 06:01 Neutrophils % 59.7 % (41.7-73.7) 08/20/19 06:01 Lymphocytes % 29.6 % (15.3-44.8) 08/20/19 06:01 Monocytes % 7.9 % (3.3-12.3) 08/20/19 06:01 Eosinophils % 1.8 % (0-4.4) 08/20/19 06:01 Basophils % 1.0 % (0-1.3) 08/20/19 06:01 Absolute Neutrophils 4.0 K/uL (1.8-8.0) 08/20/19 06:01 Absolute Lymphocytes 2.0 K/uL (0.7-4.9) 08/20/19 06:01 Absolute Monocytes 0.5 K/uL (0.1-1.3) 08/20/19 06:01 Absolute Eosinophils 0.1 K/uL (0-0.5) 08/20/19 06:01 Absolute Basophils 0.1 K/uL (0-0.5) 08/20/19 06:01 Sodium 141 mmol/L (136-145) 08/20/19 06:01 Potassium 4.5 mmol/L (3.5-5.1) 08/20/19 06:01 Chloride 106 mmol/L (98-107) 08/20/19 06:01 Carbon Dioxide 31 mmol/L (21-32) 08/20/19 06:01 BUN 17 mg/dL (7-18) 08/20/19 06:01 Creatinine 0.84 mg/dL (0.55-1.3) 08/20/19 06:01 Estimated GFR 71 mL/min (=/>90) L 08/20/19 06:01 Glucose 102 mg/dL (74-106) 08/20/19 06:01 POC Glucose 83 mg/dL (65-120) 08/21/19 07:12 Calcium 8.5 mg/dL (8.5-10.1) 08/20/19 06:01 Magnesium 2.2 mg/dL (1.8-2.4) 08/20/19 06:01 Albumin 2.7 g/dL (3.4-5.0) L 08/20/19 06:01 Prealbumin 12.4 mg/dL (20-40) L 08/20/19 06:01 Urine Color Yellow 08/17/19 22:00 Urine Appearance Clear 08/17/19 22:00 Urine pH 7.5 (5.0-7.0) H 08/17/19 22:00 Ur Specific Worley 1.015 (1.005-1.030) 08/17/19 22:00 Glucose (UA)(Auto) Negative (NEG) 08/17/19 22:00 Urine Ketones Negative (NEG) 08/17/19 22:00 Urine Blood 1+ (NEG) H 08/17/19 22:00 Urine Nitrite Positive (NEG) H 08/17/19 22:00 Urine Bilirubin Negative (NEG) 08/17/19 22:00 Urine Urobilinogen 4.0 mg/dL (0.2-1.0) H 08/17/19 22:00 Ur Leukocyte Esterase 2+ (NEG) H 08/17/19 22:00 Urine RBC 10-20 /HPF (NONE SEEN) H 08/17/19 22:00 Urine WBC 5-10 /HPF (<5) H 08/17/19 22:00 Ur Squamous Epith Cells SYNTHETIC FILAMENT EXTRUDER 08/17/19 22:00 Ur Urothelial Cells <5 /HPF (NONE SEEN) 08/17/19 22:00 Urine Bacteria >50 /HPF (<20) H 08/17/19 22:00 Urine Culture Reflexed Not needed 08/17/19 22:00 Urine Total Protein Negative (NEG) 08/17/19 22:00 Weight: 307 lb Wound Present: No Closed Surgical Incision Present: Yes Negative Pressure Wound Therapy Present: No Physician Update: Labs reviewed and are stable. She is making very good progress with physical and occupational therapy. She has pain in her ribs and left lower extremity fracture site. She is doing well with transfers. Summary: Patient's care plan and longterm goals have been reviewed and revised as necessary. Please see the Rehabilitation Signature page for all necessary signatures.
[2019-08-21] MEDS: methocarbamoL 750 MG TAB PO PRN ×2 (13:57→19:52)
[2019-08-21] MEDS: TRAMADOL HCL 50 MG TAB PO PRN (13:58)
[2019-08-21] MEDS: LORAZEPAM 1 MG TABLET PO SCH (19:49)
[2019-08-21] MEDS: ATORVASTATIN 10 MG TAB PO SCH (19:50)
[2019-08-21] MEDS: PROMOD 30 ML DOSE PO SCH (19:50)
[2019-08-22] MEDS: LEVOTHYROXINE SOD 0.125 MG TAB PO SCH (06:50)
[2019-08-22] MEDS: INSULIN -REGULAR HUMAN 50 UNIT/0.5 ML ML SQ SCH ×4 (07:30→20:09)
[2019-08-22] MEDS: ENOXAPARIN 40 MG/0.4 ML SQ SCH (08:23)
[2019-08-22] MEDS: PIOGLITAZONE 15 MG TAB PO SCH (08:23)
[2019-08-22] MEDS: TAMSULOSIN 0.4 MG SR CAP PO SCH (08:23)
[2019-08-22] MEDS: GABAPENTIN 300 MG CAP PO SCH ×2 (08:23→19:30)
[2019-08-22] MEDS: MAGNESIUM OXIDE 400 MG TAB PO SCH ×2 (08:24→19:29)
[2019-08-22] MEDS: SERTRALINE HCL 100 MG TAB PO SCH (08:24)
[2019-08-22] MEDS: TRAMADOL HCL 50 MG TAB PO PRN ×2 (08:24→19:31)
[2019-08-22] MEDS: METOPROLOL TAR 50 MG TAB PO SCH ×2 (08:24→19:29)
[2019-08-22] MEDS: PROMOD 30 ML DOSE PO SCH ×2 (08:25→19:30)
[2019-08-22] MEDS: LIDOCAINE 4% PATCH TOP SCH (08:36)
[2019-08-22] MEDS: MORPHINE 15 MG IR TAB PO PRN ×2 (11:27→22:48)
[2019-08-22] MEDS: methocarbamoL 750 MG TAB PO PRN (19:28)
[2019-08-22] MEDS: LORAZEPAM 1 MG TABLET PO SCH (20:08)
[2019-08-22] MEDS: ATORVASTATIN 10 MG TAB PO SCH (20:08)
[2019-08-23] MEDS: ENOXAPARIN 40 MG/0.4 ML SQ SCH (07:02)
[2019-08-23] MEDS: LEVOTHYROXINE SOD 0.125 MG TAB PO SCH (07:02)
[2019-08-23] MEDS: INSULIN -REGULAR HUMAN 50 UNIT/0.5 ML ML SQ SCH ×4 (07:30→19:54)
[2019-08-23] MEDS: METOPROLOL TAR 50 MG TAB PO SCH ×2 (08:00→19:52)
[2019-08-23] MEDS: LIDOCAINE 4% PATCH TOP SCH (08:12)
[2019-08-23] MEDS: TAMSULOSIN 0.4 MG SR CAP PO SCH (08:12)
[2019-08-23] MEDS: PIOGLITAZONE 15 MG TAB PO SCH (08:12)
[2019-08-23] MEDS: GABAPENTIN 300 MG CAP PO SCH ×2 (08:12→19:52)
[2019-08-23] MEDS: TRAMADOL HCL 50 MG TAB PO PRN ×2 (08:13→19:53)
[2019-08-23] MEDS: SERTRALINE HCL 100 MG TAB PO SCH (08:13)
[2019-08-23] MEDS: PROMOD 30 ML DOSE PO SCH ×2 (08:15→19:48)
[2019-08-23] MEDS: MAGNESIUM OXIDE 400 MG TAB PO SCH ×2 (08:15→19:51)
[2019-08-23] MEDS: CRANBERRY FRUIT EXTRACT 200 MG CAP PO SCH (19:52)
[2019-08-23] MEDS: methocarbamoL 750 MG TAB PO PRN (19:53)
[2019-08-23] MEDS: LORAZEPAM 1 MG TABLET PO SCH (20:10)
[2019-08-23] MEDS: ATORVASTATIN 10 MG TAB PO SCH (20:10)
[2019-08-23] MEDS: LOPERAMIDE HCL 2 MG CAPSULE PO PRN (20:19)
[2019-08-23] MEDS: MORPHINE 15 MG IR TAB PO PRN (21:48)
[2019-08-24] MEDS: LEVOTHYROXINE SOD 0.125 MG TAB PO SCH (06:36)
[2019-08-24] MEDS: ENOXAPARIN 40 MG/0.4 ML SQ SCH (06:37)
[2019-08-24] MEDS: PIOGLITAZONE 15 MG TAB PO SCH (07:15)
[2019-08-24] MEDS: MORPHINE 15 MG IR TAB PO PRN (07:16)
[2019-08-24] MEDS: GABAPENTIN 300 MG CAP PO SCH ×2 (07:16→19:26)
[2019-08-24] MEDS: CRANBERRY FRUIT EXTRACT 200 MG CAP PO SCH ×2 (07:16→19:25)
[2019-08-24] MEDS: SERTRALINE HCL 100 MG TAB PO SCH (07:17)
[2019-08-24] MEDS: TAMSULOSIN 0.4 MG SR CAP PO SCH (07:17)
[2019-08-24] MEDS: MAGNESIUM OXIDE 400 MG TAB PO SCH ×2 (07:18→19:25)
[2019-08-24] MEDS: METOPROLOL TAR 50 MG TAB PO SCH ×2 (07:18→19:26)
[2019-08-24] MEDS: INSULIN -REGULAR HUMAN 50 UNIT/0.5 ML ML SQ SCH ×2 (07:19→20:00)
[2019-08-24] MEDS: PROMOD 30 ML DOSE PO SCH ×2 (07:19→19:26)
[2019-08-24] MEDS: LIDOCAINE 4% PATCH TOP SCH (09:04)
[2019-08-24 11:16] LABS: C.diff Antigen/Toxin Ag neg : Tox neg (NEG : NEG)
[2019-08-24] MEDS: TRAMADOL HCL 50 MG TAB PO PRN (12:11)
--- NOTE | 2019-08-24 16:10 | RAD REPORT ---
EXAM DESCRIPTION: US - Extremity Venous Uni Ltd - 08/24/2019 4:00 pm CLINICAL HISTORY: PAIN AND SWELLING AT THE BACK OF RIGHT KNEE COMPARISON: None. TECHNIQUE: Real-time sonographic evaluation of the right lower extremity deep venous systems was per formed. FINDINGS: Normal compressibility, flow augmentation, phasic flow and spontaneous flow are identified in the right lower extremity common femoral, superficial femoral, popliteal and posterior tibial vei ns. No intraluminal filling defects seen. A complex 9 x 6 x 3 cm cystic or anechoic collection is present posterior upper calf and knee region. This is in the area of pain and redness. No thickened rim or rind. Abscess is unlikely. This may be an old hematoma/ seroma. Popliteal fossa cyst fluid and reactive fluid would be possible. IMPRESSION: No DVT in the right lower extremity. Complex 9 x 6 x 3 cm mostly cystic collection in the posterior knee and upper calf region. The lack o f a thickened rim or rind would make abscess lower in likelihood. This could be an old hematoma/serom a. Complex Vasquez cyst with leakage in a reactive fluid would be possible.
[2019-08-24] MEDS: methocarbamoL 750 MG TAB PO PRN (19:25)
[2019-08-24] MEDS: LORAZEPAM 1 MG TABLET PO SCH (19:25)
[2019-08-24] MEDS: ATORVASTATIN 10 MG TAB PO SCH (19:26)
[2019-08-25] MEDS: ENOXAPARIN 40 MG/0.4 ML SQ SCH (06:55)
[2019-08-25] MEDS: LIDOCAINE 4% PATCH TOP SCH (06:56)
[2019-08-25] MEDS: LEVOTHYROXINE SOD 0.125 MG TAB PO SCH (06:56)
[2019-08-25] MEDS: MAGNESIUM OXIDE 400 MG TAB PO SCH ×2 (08:00→19:34)
[2019-08-25] MEDS: INSULIN -REGULAR HUMAN 50 UNIT/0.5 ML ML SQ SCH ×2 (08:00→19:33)
[2019-08-25] MEDS: PROMOD 30 ML DOSE PO SCH (08:00)
[2019-08-25] MEDS: PIOGLITAZONE 15 MG TAB PO SCH (08:36)
[2019-08-25] MEDS: METOPROLOL TAR 50 MG TAB PO SCH ×2 (08:37→19:34)
[2019-08-25] MEDS: CRANBERRY FRUIT EXTRACT 200 MG CAP PO SCH ×2 (08:37→19:31)
[2019-08-25] MEDS: GABAPENTIN 300 MG CAP PO SCH ×2 (08:37→19:32)
[2019-08-25] MEDS: SERTRALINE HCL 100 MG TAB PO SCH (08:38)
[2019-08-25] MEDS: TAMSULOSIN 0.4 MG SR CAP PO SCH (08:40)
[2019-08-25] MEDS: TRAMADOL HCL 50 MG TAB PO PRN (08:40)
[2019-08-25] MEDS: LOPERAMIDE HCL 2 MG CAPSULE PO PRN (09:33)
[2019-08-25] MEDS: methocarbamoL 750 MG TAB PO PRN ×2 (12:21→19:32)
[2019-08-25] MEDS: MORPHINE 15 MG IR TAB PO PRN (19:32)
[2019-08-25] MEDS: LORAZEPAM 1 MG TABLET PO SCH (19:32)
[2019-08-25] MEDS: ATORVASTATIN 10 MG TAB PO SCH (19:33)
[2019-08-25] MEDS: ENSURE HIGH PROTEIN 237 ML CAN PO SCH (19:34)
--- NOTE | 2019-08-26 00:40 | R.PN ---
ENCOUNTER DATE AND TIME: 08/25/2019 19:39 (CDT) NAME JENNI QUINONES DATE OF : 1965 DATE OF ADMISSION: 08/17/2019 18:03 (CDT) 4+ Rib FX's, Fractures of L Foot (closed)CHIEF COMPLAINT: Multiple traumatic fractures SUBJECTIVE: Pt denied any depression. Pt denied any Shortness of Breath. WBC 5.9, Hgb 10.4, prealbumin 13.5, glucose 72 to 101. She is mobilizing a wheelchair with modified independence in the unit. Her pain is well controlled. Her leg Doppler study showed no DVT. 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 VITAL SIGNS Temperature: 97.6 F SBP/DBP: 116/55 Pulse: 62 Resp: 16 MEDICATION ALLERGIES: No Known Drug Allergies (NKDA) ENVIRONMENTAL ALLERGIES: None Known - Substance Allergies None Known - Other Allergies None Known NURSING: - Shower allowing shower - Skin care per protocol PRECAUTIONS: - Weight Bearing Precaution NWB left LE ACTIVITIES OOB only with supervision THERAPIES: - Dietary and Nutrition Adequate Nutrition. Nutritional Education. Nutritional Supplements. PHYSICAL EXAM - Gen Alert and awake Lying in bed No apparent distress Oriented to: person, time, and place - Skin No skin breakdown. No abnormalities - Eyes No abnormalities - ENMT No abnormalities - Neck No abnormalities - CVS RRR - Chest No abnormalities - Resp No wheezing - Abd Soft - GI Obese Deferred - Urinary retention - Ext No significant edema - MSK 4+/5 weakness in both lower extremities. - Neuro No focal deficits - Psych No abnormalities ASSESSMENT: Pt. is a 53 yo Right-handed white female.On 08/07/2019 she was admitted to [facility] [place] [facility] for 4+ Rib FX's, Fractures of L Foot (closed) (ORIF of Left Foot ) by Dr Jordana Mathews.Pre-morbidly, Pt. was independent/mod-I in Transfers Control, Locomotion, and Self-Care; and she had good Balance, Safety Awareness, Social Cognition, Sphincter Control, and Communication.Curre ntly, she has deficits of Transfers Control, Balance, Locomotion, Safety Awareness, and Self-Care.Pt. is now referred to [facility] for acute in-patient rehabilitation in order to maximize patient's functional independence in activities of daily living, strength, ROM, and mobilit y.- Rehab Goal Patient has realistic goal of being discharged at assistance level 6-Jaquan to reside at Home with Spo use. MDM/PLAN: - Physical Therapy Decreased range of motion - to improve, our physical therapists will perform initial evaluation of p t's status upon admission and devise an individualized program for increasing patient's Range of Castillo on. Gait dysfunction - to improve, our physical therapists will perform initial evaluation of pt's statu s upon admission and devise an individualized program for Gait Training, and Wheel Chair mobility Inability to transfer - to improve, our physical therapists will perform initial evaluation of pt's status upon admission and devise an individualized program for Bed mobility Need for home safety evaluation - to improve, our physical therapists will perform initial evaluatio n of pt's status upon admission and devise an individualized program for Home Evaluation Need in caregiver upon discharge - to improve, our physical therapists will perform initial evaluati on of pt's status upon admission and devise an individualized program for Caregiver Training Edema - to improve, our physical therapists will perform initial evaluation of pt's status upon admi ssion and devise an individualized program for Elevation Training, and Lymphedema Therapy New precaution - to improve, our physical therapists will perform initial evaluation of pt's status upon admission and devise an individualized program for Patient precaution education Poor balance - to improve, our physical therapists will perform initial evaluation of pt's status up on admission and devise an individualized program for Balance Training Weakness - to improve, our physical therapists will perform initial evaluation of pt's status upon a dmission and devise an individualized program for Aquatic Therapy, Neuromuscular Reeducation, and Str engthening Achieving independence - to improve, our physical therapists will perform initial evaluation of pt's status upon admission and devise an individualized program for Community Reintegration Activities - Occupational Therapy ADL deficits - to improve, our occupation therapists will perform initial evaluation of pt's status upon admission and devise an individualized program for Bathing, Bed mobility, Community Reintegratio n, Cooking, Dressing, Eating, Fine Motor Skills, Grooming, Homemaking, Kitchen Mobility, Laundry, Pat ient Education, Safety Awareness, Splinting - Positioning, Transfers(Toilet, Tub, Shower), and Wheel Chair Management Need for director of healthcare systems - to improve, our occupation therapists will perform initial evaluation of pt's status upon admission and devise an individualized program for Caregiver Training Weakness - to improve, our occupation therapists will perform initial evaluation of pt's status upon admission and devise an individualized program for Aquatic Therapy, Balance, Endurance, UE ROM, and UE strengthening - Other See attached MAR (Medication Administration Record) - Diet Type Continue Regular - Diet - Liquid Texture Continue Regular - Tube Feed Continue N/A - Weight Bearing Precaution NWB left LE - Skin care per protocol - Diet - Solid Texture Continue Regular - Shower allowing shower FUNCTIONAL STATUS: UPDATED AT WEEKLY TEAM CONFERENCE - Bladder Same accident frequency: 7-Ind - No accidents in the past 7 days - Bowel Same accident frequency: 7-Ind - No accidents in the past 7 days - Walking Same score based on distance walked: 1(<=50ft) FUNCTIONAL STATUS: - Self-Care A. Eating Jaquan B. Grooming Jaquan C. Bathing modA D. Dressing - Upper Teresa E. Dressing - Lower modA F. Toileting Teresa - Sphincter Control G. Bladder control Jaquan H. Bowel control Jaquan - Transfers Control I. Bed/Chair/Wheelchair Teresa J. Toilet Teresa K. Tub/Shower modA - Locomotion L. Walk/Wheelchair (B) modA M. Stairs Dep - Communication N. Comprehension (B) Ind O. Expression (B) Ind - Social Cognition P. Social Interaction Ind Q. Problem Solving Ind R. Memory Ind - Endurance Fair - Balance Fair - Safety Awareness Fair QI SCORES: - Self-Care A. Eating 04-Supervision or touching assistance B. Oral hygiene 04-Supervision or touching assistance C. Toileting hygiene 04-Supervision or touching assistance E. Shower/bathe self 03-Partial/moderate assistance F. Upper body dressing G. Lower body dressing H. Putting on/taking off footwear - Mobility A. Roll left and right 04-Supervision or touching assistance B. Sit to lying 04-Supervision or touching assistance C. Lying to sitting on side of bed 04-Supervision or touching assistance D. Sit to stand 04-Supervision or touching assistance E. Chair/[id number]-ft-[id number] transfer 04-Supervision or touching assistance F. Toilet transfer 04-Supervision or touching assistance G. Car transfer 88-Not attempted due to medical condition or safety concerns I. Walk 10 feet 88-Not attempted due to medical condition or safety concerns J. Walk 50 feet with two turns 88-Not attempted due to medical condition or safety concerns K. Walk 150 feet 88-Not attempted due to medical condition or safety concerns L. Walking 10 feet on uneven surfaces 88-Not attempted due to medical condition or safety concerns M. 1 step (curb) 88-Not attempted due to medical condition or safety concerns N. 4 steps 88-Not attempted due to medical condition or safety concerns O. 12 steps 88-Not attempted due to medical condition or safety concerns P. Picking up object 88-Not attempted due to medical condition or safety concerns - Bladder and Bowel Bladder continence 0-Always continent Bowel continence 0-Always continent - Endurance Poor - Balance Poor - Safety Awareness Poor CURRENT FUNC. DEFICITS: Self-Care, Mobility, Endurance, Balance, and Safety Awareness SIGNATURE PANEL: (CDT)
[2019-08-26] MEDS: MORPHINE 15 MG IR TAB PO PRN ×4 (02:28→20:10)
[2019-08-26] MEDS: ENOXAPARIN 40 MG/0.4 ML SQ SCH (06:28)
[2019-08-26] MEDS: LEVOTHYROXINE SOD 0.125 MG TAB PO SCH (06:28)
[2019-08-26] MEDS: INSULIN -REGULAR HUMAN 50 UNIT/0.5 ML ML SQ SCH ×2 (07:09→19:50)
[2019-08-26] MEDS: ENSURE HIGH PROTEIN 237 ML CAN PO SCH ×2 (07:24→19:49)
[2019-08-26] MEDS: SERTRALINE HCL 100 MG TAB PO SCH (07:26)
[2019-08-26] MEDS: CRANBERRY FRUIT EXTRACT 200 MG CAP PO SCH ×2 (07:26→19:48)
[2019-08-26] MEDS: TAMSULOSIN 0.4 MG SR CAP PO SCH (07:26)
[2019-08-26] MEDS: PIOGLITAZONE 15 MG TAB PO SCH ×2 (07:27→08:00)
[2019-08-26] MEDS: METOPROLOL TAR 50 MG TAB PO SCH ×2 (07:27→19:49)
[2019-08-26] MEDS: GABAPENTIN 300 MG CAP PO SCH ×2 (07:27→19:45)
[2019-08-26] MEDS: MAGNESIUM OXIDE 400 MG TAB PO SCH ×2 (07:28→19:46)
[2019-08-26] MEDS: LIDOCAINE 4% PATCH TOP SCH (08:56)
--- NOTE | 2019-08-26 14:23 | FAST ---
SHIFT START DATE/TIME: 08/26/2019 07:00 (CDT) SHIFT END DATE/TIME: 08/26/2019 19:00 (CDT) NAME JENNI QUINONES DATE OF : 1965 DATE OF ADMISSION: 08/17/2019 18:03 (CDT) PHONE: [phone] AGE: 53 N# [id number] GENDER: Female ENCOUNTER PHYSICIAN: Dr. Ian Kelly M.D. ADMISSION DIAGNOSIS: - Orthopaedic Disorders 08 - Major Multiple Fractures (08.4) 4+ Rib FX's, Fractures of L Foot (closed). EATING: EATING - STEP 1: Does the patient complete the activity by him/herself with no assistance (physical, verbal/nonverbal cueing, setup/clean-up)? No. EATING - STEP 2: Does the patient need only setup/clean-up assistance from one helper? Yes. 1. [id number] ADMISSION PERFORMANCE: Setup or clean-up assistance CODE: 05 ORAL HYGIENE: ORAL HYGIENE - STEP 1: Does the patient complete the activity by him/herself with no assistance (physical, verbal/nonverbal cueing, setup/clean-up)? No. ORAL HYGIENE - STEP 2: Does the patient need only setup/clean-up assistance from one helper? Yes. 1. [id number] ADMISSION PERFORMANCE: Setup or clean-up assistance CODE: 05 TOILETING HYGIENE: TOILETING HYGIENE - STEP 1: Does the patient complete the activity by him/herself with no assistance (physical, verbal/nonverbal cueing, setup/clean-up)? No. TOILETING HYGIENE - STEP 2: Does the patient need only setup/clean-up assistance from one helper? Yes. 1. [id number] ADMISSION PERFORMANCE: Setup or clean-up assistance CODE: 05 BATHING: Not assessed/no information CODE: - DRESSING - UPPER BODY: DRESSING - UPPER BODY - STEP 1: Does the patient complete the activity by him/herself with no assistance (physical, verbal/nonverbal cueing, setup/clean-up)? No. DRESSING - UPPER BODY - STEP 2: Does the patient need only setup/clean-up assistance from one helper? Yes. 1. [id number] ADMISSION PERFORMANCE: Setup or clean-up assistance CODE: 05 DRESSING - LOWER BODY: DRESSING - LOWER BODY - STEP 1: Does the patient complete the activity by him/herself with no assistance (physical, verbal/nonverbal cueing, setup/clean-up)? No. DRESSING - LOWER BODY - STEP 2: Does the patient need only setup/clean-up assistance from one helper? Yes. 1. [id number] ADMISSION PERFORMANCE: Setup or clean-up assistance CODE: 05 PUTTING ON/TAKING OFF FOOTWEAR: FOOTWEAR - STEP 1: Does the patient complete the activity by him/herself with no assistance (physical, verbal/nonverbal cueing, setup/clean-up)? No. FOOTWEAR - STEP 2: Does the patient need only setup/clean-up assistance from one helper? Yes. 1. [id number] ADMISSION PERFORMANCE: Setup or clean-up assistance CODE: 05 ROLL LEFT AND RIGHT: ROLL LEFT AND RIGHT - STEP 1: Does the patient complete the activity by him/herself with no assistance (physical, verbal/nonverbal cueing, setup/clean-up)? No. ROLL LEFT AND RIGHT - STEP 2: Does the patient need only setup/clean-up assistance from one helper? Yes. 1. [id number] ADMISSION PERFORMANCE: Setup or clean-up assistance CODE: 05 SIT TO LYING: SIT TO LYING - STEP 1: Does the patient complete the activity by him/herself with no assistance (physical, verbal/nonverbal cueing, setup/clean-up)? No. SIT TO LYING - STEP 2: Does the patient need only setup/clean-up assistance from one helper? Yes. 1. [id number] ADMISSION PERFORMANCE: Setup or clean-up assistance CODE: 05 LYING TO SITTING: LYING TO SITTING ON SIDE OF BED - STEP 1: Does the patient complete the activity by him/herself with no assistance (physical, verbal/nonverbal cueing, setup/clean-up)? No. LYING TO SITTING ON SIDE OF BED - STEP 2: Does the patient need only setup/clean-up assistance from one helper? Yes. 1. [id number] ADMISSION PERFORMANCE: Setup or clean-up assistance CODE: 05 SIT TO STAND: SIT TO STAND - STEP 1: Does the patient complete the activity by him/herself with no assistance (physical, verbal/nonverbal cueing, setup/clean-up)? No. SIT TO STAND - STEP 2: Does the patient need only setup/clean-up assistance from one helper? Yes. 1. [id number] ADMISSION PERFORMANCE: Setup or clean-up assistance CODE: 05 TRANSFERS: BED, CHAIR: CHAIR/[id number]-[id number] TRANSFER - STEP 1: Does the patient complete the activity by him/herself with no assistance (physical, verbal/nonverbal cueing, setup/clean-up)? No. [id number]/[id number] TRANSFER - STEP 2: Does the patient need only setup/clean-up assistance from one helper? Yes. 1. [id number] ADMISSION PERFORMANCE: Setup or clean-up assistance CODE: 05 TRANSFER TOILET: TOILET TRANSFER - STEP 1: Does the patient complete the activity by him/herself with no assistance (physical, verbal/nonverbal cueing, setup/clean-up)? No. TOILET TRANSFER - STEP 2: Does the patient need only setup/clean-up assistance from one helper? Yes. 1. [id number] ADMISSION PERFORMANCE: Setup or clean-up assistance CODE: 05 TRANSFERS: CAR: Not assessed/no information CODE: - WALK 10 FEET: Not assessed/no information CODE: - 1 STEP (CURB): Not assessed/no information CODE: - PICKING UP OBJECT: Not assessed/no information CODE: - DOES THE PATIENT USE A WHEELCHAIR/SCOOTER? Q1. DOES THE PATIENT USE A WHEELCHAIR/SCOOTER?: Yes CODE: 1 WHEEL 50 FEET WITH TWO TURNS: WHEEL 50 FEET WITH TWO TURNS - STEP 1: Does the patient complete the activity by him/herself with no assistance (physical, verbal/nonverbal cueing, setup/clean-up)? No. WHEEL 50 FEET WITH TWO TURNS - STEP 2: Does the patient need only setup/clean-up assistance from one helper? Yes. 1. [id number] ADMISSION PERFORMANCE: Setup or clean-up assistance CODE: 05 INDICATE THE TYPE OF WHEELCHAIR/SCOOTER USED: RR1. INDICATE THE TYPE OF WHEELCHAIR/SCOOTER USED.: Manual CODE: 1 WHEEL 150 FEET: WHEEL 150 FEET - STEP 1: Does the patient complete the activity by him/herself with no assistance (physical, verbal/nonverbal cueing, setup/clean-up)? No. WHEEL 150 FEET - STEP 2: Does the patient need only setup/clean-up assistance from one helper? Yes. 1. [id number] ADMISSION PERFORMANCE: Setup or clean-up assistance CODE: 05 INDICATE THE TYPE OF WHEELCHAIR/SCOOTER USED: SS1. INDICATE THE TYPE OF WHEELCHAIR/SCOOTER USED.: Manual CODE: 1 BLADDER AND BOWEL: H350. BLADDER CONTINENCE (3-DAY ASSESSMENT PERIOD): Always continent (no documented incontinence) CODE: 0 H400. BOWEL CONTINENCE (3-DAY ASSESSMENT PERIOD): Always continent CODE: 0 SIGNATURE PANEL: The following modified sections: 1. [id number] Admission Performance, 1. [id number] Admission Performance, 1. [id number] Admission Performance, 1. [id number] Admission Performance, 1. [id number] Admission Performance, 1. RR9982n Admission Performance, 1. [id number] Admission Performance, 1. [id number] Admission Performance , 1. [id number] Admission Performance, 1. [id number] Admission Performance, 1. [id number] Admission Performanc e, 1. [id number] Admission Performance, Q1. Does the patient use a wheelchair/scooter?, 1. [id number] Admis khloe Performance, RR1. Indicate the type of wheelchair/scooter used., 1. [id number] Admission Performanc e, Code, SS1. Indicate the type of wheelchair/scooter used., H350. Bladder Continence (3-day assessme nt period), H400. Bowel Continence (3-day assessment period) were [electronically] signed by Mukesh DanielsNMing on SatAug 26 2019 14:22:21 GMT-0500 (Central Daylight Time)
--- NOTE | 2019-08-26 15:25 | FAST ---
ENCOUNTER DATE AND TIME: 08/26/2019 08:00 (CDT) NAME JENNI QUINONES DATE OF : 1965 DATE OF ADMISSION: 08/17/2019 18:03 (CDT) PHONE: [phone] AGE: 53 SSN# [id number] GENDER: Female ENCOUNTER PHYSICIAN: Dr. Ian Kelly M.D. ADMISSION DIAGNOSIS: - Orthopaedic Disorders 08 - Major Multiple Fractures (08.4) 4+ Rib FX's, Fractures of L Foot (closed). EATING: Not assessed/no information CODE: - ORAL HYGIENE: ORAL HYGIENE - STEP 1: Does the patient complete the activity by him/herself with no assistance (physical, verbal/nonverbal cueing, setup/clean-up)? Yes. 1. [id number] ADMISSION PERFORMANCE: Independent CODE: 06 TOILETING HYGIENE: Not assessed/no information CODE: - BATHING: SHOWER/BATHE SELF - STEP 1: Does the patient complete the activity by him/herself with no assistance (physical, verbal/nonverbal cueing, setup/clean-up)? No. SHOWER/BATHE SELF - STEP 2: Does the patient need only setup/clean-up assistance from one helper? Yes. 1. [id number] ADMISSION PERFORMANCE: Setup or clean-up assistance CODE: 05 DRESSING - UPPER BODY: DRESSING - UPPER BODY - STEP 1: Does the patient complete the activity by him/herself with no assistance (physical, verbal/nonverbal cueing, setup/clean-up)? Yes. 1. [id number] ADMISSION PERFORMANCE: Independent CODE: 06 DRESSING - LOWER BODY: DRESSING - LOWER BODY - STEP 1: Does the patient complete the activity by him/herself with no assistance (physical, verbal/nonverbal cueing, setup/clean-up)? Yes. 1. [id number] ADMISSION PERFORMANCE: Independent CODE: 06 PUTTING ON/TAKING OFF FOOTWEAR: FOOTWEAR - STEP 1: Does the patient complete the activity by him/herself with no assistance (physical, verbal/nonverbal cueing, setup/clean-up)? Yes. 1. [id number] ADMISSION PERFORMANCE: Independent CODE: 06 DOES THE PATIENT USE A WHEELCHAIR/SCOOTER? CODE: EXPR INDICATE THE TYPE OF WHEELCHAIR/SCOOTER USED: CODE: EXPR INDICATE THE TYPE OF WHEELCHAIR/SCOOTER USED: CODE: EXPR BLADDER AND BOWEL: CODE: EXPR CODE: EXPR SIGNATURE PANEL: The following modified sections: 1. [id number] Admission Performance, 1. MP1887m Admission Performance, 1. [id number] Admission Performance, 1. GF7642c Admission Performance, 1. NZ3885d Admission Performance, 1. IM8726p Admission Performance were [electronically] signed by ANDRES Sotomayor on SatAug 26 2019 15:25:31 [facility]-0500 (Central Daylight Time)
--- NOTE | 2019-08-26 19:34 | R.PN ---
ENCOUNTER DATE AND TIME: 08/26/2019 19:31 (CDT) NAME JENNI QUINONES DATE OF : 1965 DATE OF ADMISSION: 08/17/2019 18:03 (CDT) 4+ Rib FX's, Fractures of L Foot (closed)CHIEF COMPLAINT: Multiple traumatic fractures SUBJECTIVE: Pt denied any depression. Pt denied any Shortness of Breath. WBC 5.9, Hgb 10.4, prealbumin 13.5, glucose 73 to 129.. She is mobilizing a wheelchair with modified independence in the unit. Her pain is well controlled. Her leg Doppler study showed no DVT. 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 Ambulated a total of 70' using a rolling walker with contact guard assistance. VITAL SIGNS Temperature: 97.6 F SBP/DBP: 122/58 Pulse: 54 Resp: 16 MEDICATION ALLERGIES: No Known Drug Allergies (NKDA) ENVIRONMENTAL ALLERGIES: None Known - Substance Allergies None Known - Other Allergies None Known NURSING: - Shower allowing shower - Skin care per protocol PRECAUTIONS: - Weight Bearing Precaution NWB left LE ACTIVITIES OOB only with supervision THERAPIES: - Dietary and Nutrition Adequate Nutrition. Nutritional Education. Nutritional Supplements. PHYSICAL EXAM - Gen Alert and awake Lying in bed No apparent distress Oriented to: person, time, and place - Skin No skin breakdown. No abnormalities - Eyes No abnormalities - ENMT No abnormalities - Neck No abnormalities - CVS RRR - Chest No abnormalities - Resp No wheezing - Abd Soft - GI Obese Deferred - Urinary retention - Ext No significant edema - MSK 4+/5 weakness in both lower extremities. - Neuro No focal deficits - Psych No abnormalities ASSESSMENT: Pt. is a 53 yo Right-handed white female.On 08/07/2019 she was admitted to [facility] emergency surgery for 4+ Rib FX's, Fractures of L Foot (closed) (ORIF of Left Foot ) by Dr Jordana Mathews.Pre-morbidly, Pt. was independent/mod-I in Transfers Control, Locomotion, and Self-Care; and she had good Balance, Safety Awareness, Social Cognition, Sphincter Control, and Communication.Curre ntly, she has deficits of Transfers Control, Balance, Locomotion, Safety Awareness, and Self-Care.Pt. is now referred to [facility] for acute in-patient rehabilitation in order to maximize patient's functional independence in activities of daily living, strength, ROM, and mobilit y.- Rehab Goal Patient has realistic goal of being discharged at assistance level 6-Jaquan to reside at Home with Spo use. MDM/PLAN: - Physical Therapy Decreased range of motion - to improve, our physical therapists will perform initial evaluation of p t's status upon admission and devise an individualized program for increasing patient's Range of Castillo on. Gait dysfunction - to improve, our physical therapists will perform initial evaluation of pt's statu s upon admission and devise an individualized program for Gait Training, and Wheel Chair mobility Inability to transfer - to improve, our physical therapists will perform initial evaluation of pt's status upon admission and devise an individualized program for Bed mobility Need for home safety evaluation - to improve, our physical therapists will perform initial evaluatio n of pt's status upon admission and devise an individualized program for Home Evaluation Need in caregiver upon discharge - to improve, our physical therapists will perform initial evaluati on of pt's status upon admission and devise an individualized program for Caregiver Training Edema - to improve, our physical therapists will perform initial evaluation of pt's status upon admi ssion and devise an individualized program for Elevation Training, and Lymphedema Therapy New precaution - to improve, our physical therapists will perform initial evaluation of pt's status upon admission and devise an individualized program for Patient precaution education Poor balance - to improve, our physical therapists will perform initial evaluation of pt's status up on admission and devise an individualized program for Balance Training Weakness - to improve, our physical therapists will perform initial evaluation of pt's status upon a dmission and devise an individualized program for Aquatic Therapy, Neuromuscular Reeducation, and Str engthening Achieving independence - to improve, our physical therapists will perform initial evaluation of pt's status upon admission and devise an individualized program for Community Reintegration Activities - Occupational Therapy ADL deficits - to improve, our occupation therapists will perform initial evaluation of pt's status upon admission and devise an individualized program for Bathing, Bed mobility, Community Reintegratio n, Cooking, Dressing, Eating, Fine Motor Skills, Grooming, Homemaking, Kitchen Mobility, Laundry, Pat ient Education, Safety Awareness, Splinting - Positioning, Transfers(Toilet, Tub, Shower), and Wheel Chair Management Need for patient care provider - to improve, our occupation therapists will perform initial evaluation of pt's status upon admission and devise an individualized program for Caregiver Training Weakness - to improve, our occupation therapists will perform initial evaluation of pt's status upon admission and devise an individualized program for Aquatic Therapy, Balance, Endurance, UE ROM, and UE strengthening - Other See attached MAR (Medication Administration Record) - Diet Type Continue Regular - Diet - Liquid Texture Continue Regular - Tube Feed Continue N/A - Weight Bearing Precaution NWB left LE - Skin care per protocol - Diet - Solid Texture Continue Regular - Shower allowing shower FUNCTIONAL STATUS: UPDATED AT WEEKLY TEAM CONFERENCE - Bladder Same accident frequency: 7-Ind - No accidents in the past 7 days - Bowel Same accident frequency: 7-Ind - No accidents in the past 7 days - Walking Same score based on distance walked: 1(<=50ft) FUNCTIONAL STATUS: - Self-Care A. Eating Jaquan B. Grooming Jaquan C. Bathing modA D. Dressing - Upper Teresa E. Dressing - Lower modA F. Toileting Teresa - Sphincter Control G. Bladder control Jaquan H. Bowel control Jaquan - Transfers Control I. Bed/Chair/Wheelchair Teresa J. Toilet Teresa K. Tub/Shower modA - Locomotion L. Walk/Wheelchair (B) modA M. Stairs Dep - Communication N. Comprehension (B) Ind O. Expression (B) Ind - Social Cognition P. Social Interaction Ind Q. Problem Solving Ind R. Memory Ind - Endurance Fair - Balance Fair - Safety Awareness Fair QI SCORES: - Self-Care A. Eating 04-Supervision or touching assistance B. Oral hygiene 04-Supervision or touching assistance C. Toileting hygiene 04-Supervision or touching assistance E. Shower/bathe self 03-Partial/moderate assistance F. Upper body dressing G. Lower body dressing H. Putting on/taking off footwear - Mobility A. Roll left and right 04-Supervision or touching assistance B. Sit to lying 04-Supervision or touching assistance C. Lying to sitting on side of bed 04-Supervision or touching assistance D. Sit to stand 04-Supervision or touching assistance E. Chair/dbu-gu-dugia transfer 04-Supervision or touching assistance F. Toilet transfer 04-Supervision or touching assistance G. Car transfer 88-Not attempted due to medical condition or safety concerns I. Walk 10 feet 88-Not attempted due to medical condition or safety concerns J. Walk 50 feet with two turns 88-Not attempted due to medical condition or safety concerns K. Walk 150 feet 88-Not attempted due to medical condition or safety concerns L. Walking 10 feet on uneven surfaces 88-Not attempted due to medical condition or safety concerns M. 1 step (curb) 88-Not attempted due to medical condition or safety concerns N. 4 steps 88-Not attempted due to medical condition or safety concerns O. 12 steps 88-Not attempted due to medical condition or safety concerns P. Picking up object 88-Not attempted due to medical condition or safety concerns - Bladder and Bowel Bladder continence 0-Always continent Bowel continence 0-Always continent - Endurance Poor - Balance Poor - Safety Awareness Poor CURRENT FUNC. DEFICITS: Self-Care, Mobility, Endurance, Balance, and Safety Awareness SIGNATURE PANEL: (CDT)
[2019-08-26] MEDS: LORAZEPAM 1 MG TABLET PO SCH (20:11)
[2019-08-26] MEDS: ATORVASTATIN 10 MG TAB PO SCH (20:11)
[2019-08-27] MEDS: TRAMADOL HCL 50 MG TAB PO PRN ×3 (05:46→14:26)
[2019-08-27 06:26] LABS: Absolute Lymphocytes (CBC) 1.7 K/uL (0.7-4.9); Basophils % 1.1 % (0-1.3); Lymphocytes % 36.2 % (15.3-44.8); MPV 10.3 fL (7.6-11.3); RBC Red Blood Cell Count 3.63 M/uL (3.86-4.86)
[2019-08-27 06:37] LABS: Albumin 2.7 g/dL (3.4-5.0); Prealbumin 11.7 mg/dL (20-40)
[2019-08-27] MEDS: ENOXAPARIN 40 MG/0.4 ML SQ SCH (07:35)
[2019-08-27] MEDS: LIDOCAINE 4% PATCH TOP SCH (07:35)
[2019-08-27] MEDS: LEVOTHYROXINE SOD 0.125 MG TAB PO SCH (07:38)
[2019-08-27] MEDS: INSULIN -REGULAR HUMAN 50 UNIT/0.5 ML ML SQ SCH ×2 (07:45→20:00)
[2019-08-27] MEDS: METOPROLOL TAR 50 MG TAB PO SCH (08:00)
[2019-08-27] MEDS: MAGNESIUM OXIDE 400 MG TAB PO SCH ×2 (08:00→19:57)
[2019-08-27] MEDS: CRANBERRY FRUIT EXTRACT 200 MG CAP PO SCH ×2 (08:21→19:58)
[2019-08-27] MEDS: PIOGLITAZONE 15 MG TAB PO SCH (08:22)
[2019-08-27] MEDS: GABAPENTIN 300 MG CAP PO SCH ×2 (08:22→20:02)
[2019-08-27] MEDS: SERTRALINE HCL 100 MG TAB PO SCH (08:23)
[2019-08-27] MEDS: TAMSULOSIN 0.4 MG SR CAP PO SCH (08:23)
[2019-08-27] MEDS: methocarbamoL 750 MG TAB PO PRN ×2 (08:26→19:56)
[2019-08-27] MEDS ORDERED: MORPHINE 15 MG IR TAB PO PRN (12:20)
[2019-08-27] MEDS: ENSURE HIGH PROTEIN 237 ML CAN PO SCH ×2 (12:49→20:02)
[2019-08-27 19:32] VITALS: TEMP 97.6
[2019-08-27] MEDS: METOPROLOL TAR 25 MG TAB PO SCH (19:58)
[2019-08-27] MEDS: LORAZEPAM 1 MG TABLET PO SCH (20:02)
[2019-08-27] MEDS: ATORVASTATIN 10 MG TAB PO SCH (20:02)
[2019-08-28] MEDS: LEVOTHYROXINE SOD 0.125 MG TAB PO SCH (07:01)
[2019-08-28] MEDS: ENOXAPARIN 40 MG/0.4 ML SQ SCH (07:02)
[2019-08-28 07:10] VITALS: BP 114/67
[2019-08-28] MEDS: INSULIN -REGULAR HUMAN 50 UNIT/0.5 ML ML SQ SCH (08:00)
[2019-08-28] MEDS: SERTRALINE HCL 100 MG TAB PO SCH (08:13)
[2019-08-28] MEDS: CRANBERRY FRUIT EXTRACT 200 MG CAP PO SCH (08:13)
[2019-08-28] MEDS: GABAPENTIN 300 MG CAP PO SCH (08:13)
[2019-08-28] MEDS: TAMSULOSIN 0.4 MG SR CAP PO SCH (08:14)
[2019-08-28] MEDS: PIOGLITAZONE 15 MG TAB PO SCH (08:14)
[2019-08-28] MEDS: TRAMADOL HCL 50 MG TAB PO PRN ×2 (08:15→12:25)
[2019-08-28] MEDS: METOPROLOL TAR 25 MG TAB PO SCH (08:15)
[2019-08-28] MEDS: ENSURE HIGH PROTEIN 237 ML CAN PO SCH (08:19)
[2019-08-28] MEDS: LIDOCAINE 4% PATCH TOP SCH (08:19)
[2019-08-28] MEDS: MAGNESIUM OXIDE 400 MG TAB PO SCH (08:20)
--- NOTE | 2019-08-28 09:51 | P.RH.PN ---
Estimated Length of Stay: 12 Expected Discharge Date: 08/28/19 Discharge Disposition Plan: Home Family Support: Yes [facility] Goal: Mobility, Transfers, Self Care Vital Signs: Last Vital Signs Temp 97.6 F 08/28/19 07:09 Pulse 61 08/28/19 08:15 Resp 16 08/28/19 09:15 BP 114/67 08/28/19 08:15 Pulse Ox 97 08/28/19 09:15 Laboratory: Laboratory Last Values WBC 4.7 K/uL (4.3-10.9) D 08/27/19 05:58 RBC 3.63 M/uL (3.86-4.86) L 08/27/19 05:58 Hgb 10.5 g/dL (12.0-15.0) L 08/27/19 05:58 Hct 32.0 % (36.0-45.0) L 08/27/19 05:58 MCV 88.3 fL (80-100) 08/27/19 05:58 MCH 29.0 pg (27.0-35.0) 08/27/19 05:58 MCHC 32.9 g/dL (32.0-36.0) 08/27/19 05:58 RDW 14.5 % (12.1-15.2) 08/27/19 05:58 Plt Count 199 K/uL (152-406) D 08/27/19 05:58 MPV 10.3 fL (7.6-11.3) D 08/27/19 05:58 Neutrophils % 50.5 % (41.7-73.7) 08/27/19 05:58 Lymphocytes % 36.2 % (15.3-44.8) 08/27/19 05:58 Monocytes % 9.6 % (3.3-12.3) 08/27/19 05:58 Eosinophils % 2.6 % (0-4.4) 08/27/19 05:58 Basophils % 1.1 % (0-1.3) 08/27/19 05:58 Absolute Neutrophils 2.4 K/uL (1.8-8.0) 08/27/19 05:58 Absolute Lymphocytes 1.7 K/uL (0.7-4.9) 08/27/19 05:58 Absolute Monocytes 0.5 K/uL (0.1-1.3) 08/27/19 05:58 Absolute Eosinophils 0.1 K/uL (0-0.5) 08/27/19 05:58 Absolute Basophils 0.1 K/uL (0-0.5) 08/27/19 05:58 Sodium 142 mmol/L (136-145) 08/27/19 05:58 Potassium 4.0 mmol/L (3.5-5.1) 08/27/19 05:58 Chloride 105 mmol/L (98-107) 08/27/19 05:58 Carbon Dioxide 31 mmol/L (21-32) 08/27/19 05:58 BUN 18 mg/dL (7-18) 08/27/19 05:58 Creatinine 0.95 mg/dL (0.55-1.3) 08/27/19 05:58 Estimated GFR 62 mL/min (=/>90) L 08/27/19 05:58 Glucose 125 mg/dL (74-106) H 08/27/19 05:58 POC Glucose 79 mg/dL (65-120) 08/28/19 07:04 Calcium 8.5 mg/dL (8.5-10.1) 08/27/19 05:58 Magnesium 2.2 mg/dL (1.8-2.4) 08/20/19 06:01 Albumin 2.7 g/dL (3.4-5.0) L 08/27/19 05:58 Prealbumin 11.7 mg/dL (20-40) L 08/27/19 05:58 Urine Color Yellow 08/17/19 22:00 Urine Appearance Clear 08/17/19 22:00 Urine pH 7.5 (5.0-7.0) H 08/17/19 22:00 Ur Specific [place] 1.015 (1.005-1.030) 08/17/19 22:00 Glucose (UA)(Auto) Negative (NEG) 08/17/19 22:00 Urine Ketones Negative (NEG) 08/17/19 22:00 Urine Blood 1+ (NEG) H 08/17/19 22:00 Urine Nitrite Positive (NEG) H 08/17/19 22:00 Urine Bilirubin Negative (NEG) 08/17/19 22:00 Urine Urobilinogen 4.0 mg/dL (0.2-1.0) H 08/17/19 22:00 Ur Leukocyte Esterase 2+ (NEG) H 08/17/19 22:00 Urine RBC 10-20 /HPF (NONE SEEN) H 08/17/19 22:00 Urine WBC 5-10 /HPF (<5) H 08/17/19 22:00 Ur Squamous Epith Cells [employer] 08/17/19 22:00 Ur Urothelial Cells <5 /HPF (NONE SEEN) 08/17/19 22:00 Urine Bacteria >50 /HPF (<20) H 08/17/19 22:00 Urine Culture Reflexed Not needed 08/17/19 22:00 Urine Total Protein Negative (NEG) 08/17/19 22:00 C. difficile Ag & Toxin Ag neg : tox neg (NEG : NEG) 08/23/19 17:35 Weight: 309 lb 4.8 oz Wound Present: No Closed Surgical Incision Present: Yes Negative Pressure Wound Therapy Present: No Physician Update: Labs reviewed and are stable. She is independent with ADL using a wheelchair. She could not use the knee walker. She will require help wrapping her left leg. She may remove the splint at night and replace it during the day. She has an abdominal binder. She is going back to work and will not have continued therapy. She has an ortho followup early next week. Summary: Patient's care plan and fci goals have been reviewed and revised as necessary. Please see the Rehabilitation Signature page for all necessary signatures.
== END 2019-08-28 14:30 | disposition home or self-care (01) | DRG 561 ==
LOC: 5TH 20:03
PROVIDERS: ADMIT Psychiatry & Neurology Neurology with Special Qualifications in Child Neurology; ATTEND Psychiatry & Neurology Neurology with Special Qualifications in Child Neurology
DX: S92.902D Unspecified fracture of left foot, subsequent encounter for fracture with routine healing (principal); S22.49XD Multiple fractures of ribs, unspecified side, subsequent encounter for fracture with routine healing; I10 Essential (primary) hypertension; E78.5 Hyperlipidemia, unspecified; E11.9 Type 2 diabetes mellitus without complications; Z90.49 Acquired absence of other specified parts of digestive tract; Z90.710 Acquired absence of both cervix and uterus; Z11.59 Encounter for screening for other viral diseases
CPT/HCPCS: 36415; 80048; 81001; 82040; 82947; 83735; 84134; 85025; 87077; 87086; 87088; 87186; 87324; 87449; 93971; 97110; 97116; 97161; 97530; 97542; J1650; U0002